=== PATIENT | male | born 1965 | race Caucasian/White ===

== ENCOUNTER → 2016-07-28 | Day surgery (SDC) | payer OTHER | LOC: RAD 13:09 | PROVIDERS: ATTEND Orthopaedic Surgery | PROC: BP0 Imaging, Non-Axial Upper Bones, Plain Radiography (ICD-10-PCS; principal; 2016-07-28) | DX: M87.851 Other osteonecrosis, right femur (principal); M25.551 Pain in right hip | CPT/HCPCS: 73722; 73525; 77002; A9576 ==

== ENCOUNTER 2016-10-01 08:28 | Inpatient (IN) | payer OTHER ==
--- NOTE | 2016-09-18 11:43 | RADIOLOGY REPORT (SQ) ---
EXAM DESCRIPTION: CHEST PA/LATERAL COMPLETED DATE/TIME: 09/18/2016 11:28 am REASON FOR STUDY: PRE OP COMPARISON: CT chest 12/31/2011 Chest films 01/26/2013, 05/30/2014 EXAM PARAMETERS: NUMBER OF VIEWS: two views TECHNIQUE: Digital Frontal and Lateral radiographic views of the chest acquired. RADIATION DOSE: NA LIMITATIONS: none FINDINGS: LUNGS AND PLEURA: No opacities, masses or pneumothorax. No pleural effusion. MEDIASTINUM AND HILAR STRUCTURES: No masses or contour abnormalities. HEART AND VASCULAR STRUCTURES: Heart normal size. No evidence for failure. BONES: No acute findings. HARDWARE: Clips right upper quadrant post cholecystectomy OTHER: No other significant finding. IMPRESSION: NO SIGNIFICANT RADIOGRAPHIC FINDING IN THE CHEST. TECHNICAL DOCUMENTATION: JOB ID: [id number] [employer]- All Rights Reserved
[2016-09-18 11:49] LABS: APPEARANCE,URINE CLEAR; BILIRUBIN,URINE NEGATIVE (NEGATIVE); GLUCOSE, URINE NEGATIVE (NEGATIVE); KETONES,URINE NEGATIVE (NEGATIVE); LEUKOCYTE ESTERASE,URINE NEGATIVE (NEGATIVE); NITRITE,URINE NEGATIVE (NEGATIVE); PROTEIN,URINE NEGATIVE (NEGATIVE); URINE SPECIFIC GRAVITY 1.017; UROBILINOGEN,URINE NEGATIVE mg/dL (<2.0)
[2016-09-18 12:03] LABS: ABSOLUTE EOSINOPHILS # (AUTO) 0.1 10^3/uL (0.0-0.6); ABSOLUTE LYMPHOCYTES (AUTO) 1.7 10^3/uL (0.5-4.7); ABSOLUTE MONOCYTES (AUTO) 0.5 10^3/uL (0.1-1.4); ABSOLUTE NEUT (AUTO) 2.4 10^3/uL (1.7-8.2); BASOPHILS % (AUTO) 0.6 % (0-2); EOSINOPHILS % (AUTO) 2.9 % (0-6); HEMATOCRIT 43.5 % (37.9-51.0); HEMOGLOBIN 14.8 g/dL (13.5-17.0); HGB HCT DIFFERENCE 0.9; LYMPHOCYTES % (AUTO) 35.6 % (13-45); MEAN CORPUSCULAR HEMOGLOBIN 31.2 pg (27.0-33.4); MEAN CORPUSCULAR HGB CONC 34.2 g/dL (32.0-36.0); MEAN CORPUSCULAR VOLUME 91 fl (80-97); MONOCYTES % (AUTO) 11.2 % (3-13); RED BLOOD COUNT 4.76 10^6/uL (4.35-5.55); RED CELL DISTRIBUTION WIDTH 14.4 % (11.5-14.0); SEGMENTED NEUTROPHILS % (AUTO) 49.7 % (42-78); WHITE BLOOD COUNT 4.9 10^3/uL (4.0-10.5)
[2016-09-18 12:12] LABS: ANION GAP 14 (5-19); BLOOD UREA NITROGEN 19 mg/dL (7-20); CALCIUM 9.2 mg/dL (8.4-10.2); CARBON DIOXIDE 22 mmol/L (22-30); CHLORIDE 108 mmol/L (98-107); CREATININE RESULT 1.03 mg/dL (0.52-1.25); GLUCOSE 82 mg/dL (75-110); POTASSIUM 4.4 mmol/L (3.6-5.0); SODIUM 144.2 mmol/L (137-145)
--- NOTE | 2016-09-19 04:45 | EKG REPORT ---
SEVERITY:- NORMAL ECG - SINUS RHYTHM : Confirmed by: Ijeoma Witt MD 19-Sep-2016 04:01:03
[~2016-10-01 08:28] MED LIST: CEFAZOLIN 2 GM/D5W RTU 2 GM/50 ML RTUPB IV PRN; LACTATED RINGERS 1000 ML IV PRN
[2016-10-01] MEDS ORDERED: BUPIVACAINE HCL 0.25 % INJ/PF (2.5 MG/1 ML) 30 ML VIAL ONE (10:23)
[2016-10-01] MEDS ORDERED: LIDOCAINE 1% INJ-PF (10 MG/ML) 30 ML SDV ONE (10:23)
[2016-10-01] MEDS ORDERED: FENTANYL CITRATE INJ/PF 250 MCG/5 ML AMPULE ONE ×2 (10:30→10:37)
[2016-10-01] MEDS ORDERED: MIDAZOLAM 2 MG/2 ML INJ ONE (10:30)
[2016-10-01] MEDS ORDERED: KETAMINE HCL INJ 500 MG/10 ML VIAL ONE ×2 (10:30→10:37)
[2016-10-01] MEDS ORDERED: PROPOFOL INJ 200 MG/20 ML VIAL IV ONE (10:30)
[2016-10-01] MEDS ORDERED: MEPERIDINE HCL/PF INJ 25 MG/1 ML DISP.SYRIN IV PRN (11:16)
[2016-10-01] MEDS ORDERED: OXYCODONE-ACETAMINOPHEN 5-325 MG TABLET PO PRN ×3 (11:16→12:00)
[2016-10-01] MEDS ORDERED: MORPHINE SULFATE 10 MG/ML INJ IV PRN (11:16)
[2016-10-01] MEDS ORDERED: PROMETHAZINE HCL INJ 25 MG/1 ML VIAL IV PRN ×2 (11:16)
[2016-10-01] MEDS ORDERED: FENTANYL CITRATE INJ/PF 100 MCG/2 ML AMPUL IV PRN ×3 (11:16)
[2016-10-01] MEDS ORDERED: DIPHENHYDRAMINE HCL 50 MG/ML VIAL IV PRN (11:16)
--- NOTE | 2016-10-01 11:30 | Operative Report ---
Operative Report DATE OF SURGERY: 10/01/16 PREOPERATIVE DIAGNOSIS: Bilateral femoral head avascular necrosis OPERATION: biLateral femoral head core decompression SURGEON: HUSSEIN LLOYD ANESTHESIA: LMAC ESTIMATED BLOOD LOSS: Minimal PROCEDURE: Patient supine on the fracture table the right hindquarter was prepped and draped in a sterile fashion. A pin is placed topically over the hindquarter so that the trajectory the pain can be assessed fluoroscopically. The insert site is then identified and is infiltrated with combination of Xylocaine, Marcaine, and epinephrine. Subsequent fluoroscopic guidance a pin is placed from the lateral cortex up into the proximal aspect of the head central from an anterior posterior standpoint. The pain is confirmed using fluoroscopy in 2 dimensions. Subsequently the drill from the 6.5 mm cannulated screws was advanced over the pending used to perform a core decompression. The drill and the pinna removed. The wound is irrigated. Is reapproximated with interrupted luz. An identical procedure was then performed on the left side.
[2016-10-01] MEDS: FENTANYL CITRATE INJ/PF 100 MCG/2 ML AMPUL ONE ×2 (11:45→11:55)
[2016-10-01] MEDS ORDERED: ACETAMINOPHEN 100 ML IV ONE (11:55)
[2016-10-01] MEDS: MORPHINE SULFATE 10 MG/ML INJ ONE ×2 (12:00→12:15)
[2016-10-01] MEDS ORDERED: ONDANSETRON HCL INJ/PF 4 MG/2 ML SDV IV PRN (12:00)
[2016-10-01] MEDS ORDERED: OXYCODONE HCL IR 5 MG TABLET PO PRN ×2 (12:00→12:05)
[2016-10-01] MEDS ORDERED: KETOROLAC TROMETHAMINE INJ/PF 30 MG/1 ML SDV ONE (12:49)
--- NOTE | 2016-10-01 13:11 | RADIOLOGY REPORT (SQ) ---
EXAM DESCRIPTION: HIP IN OPERATING RM; NO CHG FLUORO COMPLETED DATE/TIME: 10/01/2016 12:37 pm REASON FOR STUDY: BILAT HIP DECOMP IN OR M87.059 IDIOPATHIC ASEPTIC NECROSIS OF UNSPECIFIED FEMUR COMPARISON: MRI right hip 07/28/2016 FLUOROSCOPY TIME: 0.6 minutes 4 fluoroscopic digital radiographic images saved to PACS. TECHNIQUE: Intra-operative images acquired during surgical procedure to evaluate progress. NUMBER OF IMAGES: 4 digital fluoroscopic radiographic images LIMITATIONS: None. FINDINGS: Intra procedural imaging and fluoroscopy. Please see Dr. Lozano's operative report IMPRESSION: Intra procedural imaging and fluoro COMMENT: Quality ID [id number]: Final reports for procedures using fluoroscopy that document radiation exp osure indices, or exposure time and number of fluorographic images (if radiation exposure indices are not available) Please consult full operative report of the attending physician for description of the procedure. TECHNICAL DOCUMENTATION: JOB ID: [id number] [employer]- All Rights Reserved
[2016-10-01 14:09] VITALS: BP 118/82
== END 2016-10-01 14:15 | disposition home or self-care (01) | DRG 499 ==
LOC: INOR 08:28 → OROUT 08:28 → UNDOADMIN 08:28 → EDSTATUS 10:30 → OROUT 14:15 → UNDODISIN 14:15 → EDSTATUS 10-03 10:30
PROVIDERS: ADMIT Orthopaedic Surgery; ATTEND Orthopaedic Surgery
PROC: 0QB63ZZ Excision of Right Upper Femur, Percutaneous Approach (ICD-10-PCS; 2016-10-01)
PROC: 0QB Lower Bones, Excision (ICD-10-PCS; principal; 2016-10-01 10:30)
DX: M87.852 Other osteonecrosis, left femur (principal); M87.851 Other osteonecrosis, right femur; E78.5 Hyperlipidemia, unspecified; M10.9 Gout, unspecified; K21.9 Gastro-esophageal reflux disease without esophagitis; E66.9 Obesity, unspecified; J45.909 Unspecified asthma, uncomplicated; M51.36 Other intervertebral disc degeneration, lumbar region; Z90.49 Acquired absence of other specified parts of digestive tract; Z79.51 Long term (current) use of inhaled steroids; Z79.899 Other long term (current) drug therapy; Z79.1 Long term (current) use of non-steroidal anti-inflammatories (NSAID); Z68.36 Body mass index [BMI] 36.0-36.9, adult; Z91.018 Allergy to other foods; Z82.61 Family history of arthritis; Z80.1 Family history of malignant neoplasm of trachea, bronchus and lung; Z82.49 Family history of ischemic heart disease and other diseases of the circulatory system; Z88.8 Allergy status to other drugs, medicaments and biological substances
CPT/HCPCS: 01210; 36415; 71020; 80048; 81001; 85025; 93005; 93010; J0131; J0690; J1885; J2250; J2270; J2704; J3010; J3490

== ENCOUNTER 2017-03-18 07:25 | Day surgery (SDC) | payer OTHER ==
[~2017-03-18 07:25] MED LIST changes: -CEFAZOLIN 2 GM/D5W RTU 2 GM/50 ML RTUPB IV PRN; +DIPHENHYDRAMINE HCL 50 MG/ML VIAL ONE; +EPINEPHRINE INJ 1 MG/10 ML DISP.SYRIN ONE; +FENTANYL CITRATE INJ/PF 100 MCG/2 ML AMPUL ONE; +FLUMAZENIL INJ 0.5 MG/5 ML VIAL ONE; +GLUCAGON,HUMAN RECOMB 1 MG INJ ONE; -LACTATED RINGERS 1000 ML IV PRN; +MIDAZOLAM 2 MG/2 ML INJ ONE; +NALOXONE HCL INJ/PF 0.4 MG/1 ML SDV ONE; +ONDANSETRON HCL INJ/PF 4 MG/2 ML SDV ONE
--- NOTE | 2017-03-18 08:17 | Operative Report ---
Operative Report DATE OF SURGERY: 03/18/17 Operative Report: The risks benefits and alternatives of the procedure explained to the patient in detail and informed consent is obtained.A GIF Olympus video scope was inserted into the patient's mouth and hypopharynx, the esophagus is identified intubated and insufflated, the scope was then advanced through the esophagus stomach and duodenum, retroflexion maneuver is done the esophagus stomach and first and second portions of the duodenum examined PREOPERATIVE DIAGNOSIS: Gastroesophageal reflux disease POSTOPERATIVE DIAGNOSIS: Mild esophagitis, gastritis status post biopsy rule out Helicobacter pylori OPERATION: EGD with biopsy SURGEON: SHERRIE SHELL ANESTHESIA: Other - Patient chose to do the procedure unsedated. TISSUE REMOVED OR ALTERED: Gastric mucosal specimen obtained to rule out Helicobacter pylori COMPLICATIONS: None. ESTIMATED BLOOD LOSS: None. INTRAOPERATIVE FINDINGS: As noted above. PROCEDURE: Patient tolerated the procedure well. No immediate postprocedure complications are noted. Patient discharged in good condition. Discharge date 03/18/2017. Discharge diet: Regular. Discharge activity: Regular. 2-3 week follow-up to discuss findings. Patient is instructed to call the office or proceed to the emergency room should there be any further problems or questions. We will await pathology.
[2017-03-18 08:38] VITALS: BP 128/89
== END 2017-03-18 08:50 | disposition home or self-care (01) ==
LOC: END 07:25
PROVIDERS: ATTEND Internal Medicine Gastroenterology
PROC: 0DB68ZX Excision of Stomach, Via Natural or Artificial Opening Endoscopic, Diagnostic (ICD-10-PCS; principal; 2017-03-18 08:00)
DX: K21.0 Gastro-esophageal reflux disease with esophagitis (principal); E78.2 Mixed hyperlipidemia; I10 Essential (primary) hypertension; J45.909 Unspecified asthma, uncomplicated; M10.9 Gout, unspecified; K29.70 Gastritis, unspecified, without bleeding; M43.17 Spondylolisthesis, lumbosacral region; Z79.51 Long term (current) use of inhaled steroids; Z79.899 Other long term (current) drug therapy
CPT/HCPCS: 43239; 88305; 88342; J0171; J1200; J1610; J2250; J2310; J2405; J3010; J3490

== ENCOUNTER → 2017-06-16 | Outpatient (CLI) | payer OTHER ==
[2017-06-16 14:36] LABS: ABSOLUTE LYMPHOCYTES (AUTO) 2.1 10^3/uL (0.5-4.7); ABSOLUTE MONOCYTES (AUTO) 0.5 10^3/uL (0.1-1.4); ABSOLUTE NEUT (AUTO) 3.7 10^3/uL (1.7-8.2); BASOPHILS % (AUTO) 0.5 % (0-2); EOSINOPHILS % (AUTO) 0.6 % (0-6); HEMATOCRIT 43.7 % (37.9-51.0); HEMOGLOBIN 15.3 g/dL (13.5-17.0); LYMPHOCYTES % (AUTO) 32.3 % (13-45); MEAN CORPUSCULAR HEMOGLOBIN 31.6 pg (27.0-33.4); MEAN CORPUSCULAR HGB CONC 34.9 g/dL (32.0-36.0); MEAN CORPUSCULAR VOLUME 91 fl (80-97); MONOCYTES % (AUTO) 8.5 % (3-13); PLATELET COUNT 171 10^3/uL (150-450); RED BLOOD COUNT 4.83 10^6/uL (4.35-5.55); RED CELL DISTRIBUTION WIDTH 13.9 % (11.5-14.0); SEGMENTED NEUTROPHILS % (AUTO) 58.1 % (42-78); TOTAL CELLS COUNTED % (AUTO) 100 %; WHITE BLOOD COUNT 6.4 10^3/uL (4.0-10.5)
[2017-06-16 14:43] LABS: APPEARANCE,URINE CLEAR; BILIRUBIN,URINE NEGATIVE (NEGATIVE); COLOR,URINE YELLOW; GLUCOSE, URINE NEGATIVE (NEGATIVE); KETONES,URINE NEGATIVE (NEGATIVE); LEUKOCYTE ESTERASE,URINE NEGATIVE (NEGATIVE); NITRITE,URINE NEGATIVE (NEGATIVE); PROTEIN,URINE NEGATIVE (NEGATIVE); URINE SPECIFIC GRAVITY 1.012; UROBILINOGEN,URINE NEGATIVE mg/dL (<2.0)
--- NOTE | 2017-06-16 14:51 | RADIOLOGY REPORT (SQ) ---
EXAM DESCRIPTION: CHEST PA/LATERAL COMPLETED DATE/TIME: 06/16/2017 1:51 pm REASON FOR STUDY: PRE OP COMPARISON: August 2016 EXAM PARAMETERS: NUMBER OF VIEWS: two views TECHNIQUE: Digital Frontal and Lateral radiographic views of the chest acquired. RADIATION DOSE: NA LIMITATIONS: none FINDINGS: LUNGS AND PLEURA: No opacities, masses or pneumothorax. No pleural effusion. Linear scarr ing or subsegmental atelectasis is identified in the left costophrenic angle. MEDIASTINUM AND HILAR STRUCTURES: No masses or contour abnormalities. HEART AND VASCULAR STRUCTURES: Heart normal size. No evidence for failure. BONES: No acute findings. HARDWARE: None in the chest. OTHER: No other significant finding. IMPRESSION: NO SIGNIFICANT RADIOGRAPHIC FINDING IN THE CHEST. TECHNICAL DOCUMENTATION: JOB ID: [id number] [employer]- All Rights Reserved Reading location - IP/workstation name: [email or web address]
[2017-06-16 14:54] LABS: ANION GAP 10 (5-19); BLOOD UREA NITROGEN 22 mg/dL (7-20); CALCIUM 9.7 mg/dL (8.4-10.2); CARBON DIOXIDE 27 mmol/L (22-30); CHLORIDE 105 mmol/L (98-107); GLUCOSE 83 mg/dL (75-110); POTASSIUM 4.3 mmol/L (3.6-5.0); SODIUM 141.8 mmol/L (137-145)
--- NOTE | 2017-06-16 15:54 | EKG REPORT ---
SEVERITY:- OTHERWISE NORMAL ECG - SINUS TACHYCARDIA : Confirmed by: Christine Smith 16-Jun-2017 15:52:40
== END ==
LOC: OD 13:17
PROVIDERS: ATTEND Orthopaedic Surgery
DX: Z01.818 Encounter for other preprocedural examination (principal); J45.909 Unspecified asthma, uncomplicated
CPT/HCPCS: 36415; 71046; 80048; 81001; 85025; 93005; 93010

== ENCOUNTER 2017-07-13 05:27 | Inpatient (IN) | payer OTHER ==
[~2017-07-13 05:27] MED LIST changes: +BUPIVACAINE INJ/PF LIPOSOME/PF 266 MG/20 ML SDV IJ PRN; +CEFAZOLIN INJ 1 GM VIAL IV PRN; -DIPHENHYDRAMINE HCL 50 MG/ML VIAL ONE; -EPINEPHRINE INJ 1 MG/10 ML DISP.SYRIN ONE; -FENTANYL CITRATE INJ/PF 100 MCG/2 ML AMPUL ONE; -FLUMAZENIL INJ 0.5 MG/5 ML VIAL ONE; -GLUCAGON,HUMAN RECOMB 1 MG INJ ONE; +IBUPROFEN 800 MG in DEXTROSE 5%-WATER 250 ML IV PRN; +LACTATED RINGERS 1000 ML IV PRN; +LANSOPRAZOLE 15 MG TAB.RAP.DR PO PRN; +LIDOCAINE 0.5% INJ-PF (5 MG/ML) 50 ML SDV SUBCUT PRN; -MIDAZOLAM 2 MG/2 ML INJ ONE; -NALOXONE HCL INJ/PF 0.4 MG/1 ML SDV ONE; -ONDANSETRON HCL INJ/PF 4 MG/2 ML SDV ONE; +OXYCODONE HCL SR 10 MG TABLET PO PRN
[2017-07-13] MEDS: VANCOMYCIN HCL 1,000 MG in NORMAL SALINE 250 ML IV PRN ×2 (06:30→06:50)
[2017-07-13] MEDS ORDERED: THROMBIN (BOVINE) 5000 UNIT EPITAXIS KIT ONE (06:38)
[2017-07-13] MEDS ORDERED: THROMBIN (BOVINE) TOPICAL 20000 UNIT VIAL ONE (06:38)
[2017-07-13] MEDS ORDERED: BUPIVACAINE INJ/PF LIPOSOME/PF 266 MG/20 ML SDV ONE (06:38)
[2017-07-13] MEDS ORDERED: FENTANYL CITRATE INJ/PF 100 MCG/2 ML AMPUL ONE (07:24)
[2017-07-13] MEDS ORDERED: MIDAZOLAM 2 MG/2 ML INJ ONE (07:24)
[2017-07-13] MEDS ORDERED: LIDOCAINE 2% INJ-PF (20 MG/ML) 10 ML AMPUL ONE (07:24)
[2017-07-13] MEDS ORDERED: ACETAMINOPHEN 100 ML IV ONE (07:25)
[2017-07-13] MEDS ORDERED: PROPOFOL INJ 200 MG/20 ML VIAL IV ONE (07:25)
[2017-07-13] MEDS ORDERED: TETRACAINE HCL/PF 20MG/2ML AMPULE (SPINAL) ONE ×2 (07:25→07:33)
[2017-07-13] MEDS ORDERED: TRANEXAMIC ACID INJ/PF 1,000 MG/10 ML SDV IV ONE ×2 (07:28→09:32)
[2017-07-13] MEDS ORDERED: ONDANSETRON HCL INJ/PF 4 MG/2 ML SDV ONE (07:28)
[2017-07-13] MEDS ORDERED: FENTANYL CITRATE INJ/PF 100 MCG/2 ML AMPUL IV PRN ×3 (07:55)
[2017-07-13] MEDS ORDERED: PROMETHAZINE HCL INJ 25 MG/1 ML VIAL IV PRN ×2 (07:55)
[2017-07-13] MEDS ORDERED: ONDANSETRON HCL INJ/PF 4 MG/2 ML SDV IV PRN ×3 (07:55→10:30)
[2017-07-13] MEDS ORDERED: MEPERIDINE HCL/PF INJ 25 MG/1 ML DISP.SYRIN IV PRN (07:55)
[2017-07-13] MEDS ORDERED: OXYCODONE-ACETAMINOPHEN 5-325 MG TABLET PO PRN ×2 (07:55)
[2017-07-13] MEDS ORDERED: DIPHENHYDRAMINE HCL 50 MG/ML VIAL IV PRN ×2 (07:55→08:44)
--- NOTE | 2017-07-13 08:42 | Operative Report ---
Operative Report DATE OF SURGERY: 07/13/17 PREOPERATIVE DIAGNOSIS: Right hip avascular necrosis OPERATION: Right hip arthroplasty SURGEON: HUSSEIN LLOYD ANESTHESIA: Spinal TISSUE REMOVED OR ALTERED: Femoral head to pathology ESTIMATED BLOOD LOSS: 100 PROCEDURE: Implants used: Femur: Cecil Accolade 2 stem, size 6 Acetabular shell: 56 mm hemispherical shell Liner: 36 mm flat cross-link polyethylene liner Head: 36 mm chrome cobalt head standard neck The patient is placed in a left lateral decubitus position on the operating table. The right lower extremity and hindquarter is prepped and draped in a sterile fashion. A curvilinear incision was made over the greater trochanter a posterior approach the hip was taken. The femoral head is dislocated and the femoral neck transected using an oscillating saw. Attention was next turned to the acetabulum. Soft tissues cleared off the acetabulum using electrocautery. The acetabulum was then prepared using a series of hemispherical reamers until a 55 millimeters reamer is seated. Subsequently a 56 millimeters [place] titanium hemispherical shell is impacted into position and secured with one screw. A standard flat 36 millimeters cross- link liner is impacted into the shell. Attention was next turned to the femur. Access is gained to the femoral canal using a box osteotome to the piriformis fossa. The femur is then prepared using a series of broaches until a number 6 broach is seated. A trial reduction was now performed using a 36 millimeters head with standard neck. Preoperative leg length was recreated and is excellent anterior posterior stability. A decision was made to proceed with the above construct. All trial implants were removed. The wound is irrigated with pulsed lavage. A number 6 stem is impacted into the femoral canal. A trial reduction was again performed with a 36 mm head and a standard neck. Findings as previously. The hip was dislocated one last time and the final chrome-cobalt head is impacted onto the trunnion. The hip was reduced. Wound is copiously irrigated with pulsed lavage. Sent closed in layers using interrupted Vicryl followed by luz. A sterile dressing is applied and the patient's returned to recovery room in satisfactory patient.
[2017-07-13] MEDS ORDERED: ACETAMINOPHEN 325 MG TABLET PO PRN (08:44)
[2017-07-13] MEDS ORDERED: MORPHINE SULFATE 10 MG/ML INJ IV PRN ×3 (08:44→18:00)
[2017-07-13] MEDS ORDERED: RINGERS SOLUTION,LACTATED 1,000 ML IV PRN (08:44)
[2017-07-13] MEDS ORDERED: MAG HYDROX/AL HYDROX/SIMETH SUSP 30 ML UDCUP PO PRN (08:44)
[2017-07-13] MEDS ORDERED: ZOLPIDEM TARTRATE 5 MG TABLET PO PRN (08:44)
[2017-07-13] MEDS ORDERED: ONDANSETRON 4 MG TAB.RAPDIS PO PRN ×2 (08:44→10:30)
[2017-07-13] MEDS ORDERED: MORPHINE SULFATE 10 MG/ML INJ IM PRN (08:44)
[2017-07-13] MEDS: FENTANYL CITRATE INJ/PF 100 MCG/2 ML AMPUL ONE ×2 (09:07→09:15)
--- NOTE | 2017-07-13 09:32 | RADIOLOGY REPORT (SQ) ---
EXAM DESCRIPTION: PELVIS AP COMPLETED DATE/TIME: 07/13/2017 9:13 am REASON FOR STUDY: Post Op Long Cassette in PACU M76.891 OTH ENTHESOPATHIES OF RIGHT LOWER LIMB, E XCLUDING FO M25.851 OTHER SPECIFIED JOINT DISORDERS, RIGHT HIP M70.61 TROCHANTERIC BURSITIS, RIGHT HIP COMPARISON: Right hip MRI arthrogram 07/28/2016 NUMBER OF VIEWS: AP pelvis, AP right hip to include the entire femoral prosthesis TECHNIQUE: Digital radiographic images of the right hip post-procedure. LIMITATIONS: None. FINDINGS: Post right hip replacement with acetabular component anchored with a single screw, non bethanie ented femoral component. Good alignment. Overlying skin luz. Remainder of the bony pelvis is otherwise unremarkable aside from fusion hardware at L5-S1. IMPRESSION: SATISFACTORY POSTOPERATIVE RIGHT HIP. TECHNICAL DOCUMENTATION: JOB ID: [id number] [employer]- All Rights Reserved Reading location - IP/workstation name: [email or web address]
[2017-07-13] MEDS ORDERED: PHENTERMINE HCL 37.5 MG PO SCH (10:00)
[2017-07-13] MEDS ORDERED: (PENDING PHARMACY ID) (Pantoprazole Sodium [Protonix] 20 MG) PO SCH (10:00)
[2017-07-13] MEDS ORDERED: (PENDING PHARMACY ID) (Olopatadine Hcl [Pataday] 2.5 ML) OU SCH (10:00)
[2017-07-13] MEDS ORDERED: OXYCODONE HCL SR 10 MG TABLET PO SCH (10:00)
[2017-07-13] MEDS ORDERED: (PENDING PHARMACY ID) (Pregabalin [Lyrica] 200 MG) PO SCH (10:00)
[2017-07-13] MEDS: MORPHINE SULFATE 10 MG/ML INJ IV PRN ×5 (10:52→16:22)
[2017-07-13] MEDS: PRENATAL VITAMIN W DHA CAPSULE PO SCH (11:06)
[2017-07-13] MEDS: GEMFIBROZIL 600 MG TABLET PO SCH ×2 (11:06→17:59)
[2017-07-13] MEDS: SENNOSIDES/DOCUSATE 8.6-50 MG 1 EACH TABLET PO SCH ×2 (11:06→18:00)
[2017-07-13] MEDS ORDERED: PREGABALIN 100 MG CAPSULE PO ONE (11:30)
[2017-07-13] MEDS: FLUTICASONE PROPIONATE HFA 110 MCG/PUFF 12 GM MDI IH SCH ×2 (13:17→18:01)
[2017-07-13] MEDS ORDERED: PHENYLEPHRINE HCL INJ/PF 10 MG/1 ML SDV ONE (13:45)
[2017-07-13] MEDS ORDERED: PREGABALIN 100 MG CAPSULE PO SCH (14:00)
[2017-07-13] MEDS ORDERED: METHOCARBAMOL 500 MG TABLET PO PRN ×2 (15:09→18:00)
[2017-07-13] MEDS ORDERED: BACLOFEN 20 MG TABLET PO PRN (15:09)
[2017-07-13] MEDS: OXYCODONE HCL SR 10 MG TABLET PO SCH (17:26)
[2017-07-13] MEDS: IBUPROFEN 800 MG in NORMAL SALINE 250 ML IV SCH (17:26)
[2017-07-13] MEDS ORDERED: (PENDING PHARMACY ID) (Cetirizine Hcl [Zyrtec] 10 MG) PO SCH (18:00)
[2017-07-13] MEDS: CETIRIZINE 10 MG TABLET PO SCH (18:00)
[2017-07-13] MEDS: OXYCODONE HCL IR 5 MG TABLET PO PRN (19:45)
[2017-07-13] MEDS ORDERED: VANCOMYCIN HCL 1,000 MG in DEXTROSE 5%-WATER 250 ML IV ONE (20:44)
[2017-07-13] MEDS: PREGABALIN 100 MG CAPSULE PO SCH (21:23)
[2017-07-13] MEDS: SUCRALFATE SUSP 1 GM/10 ML UDCUP PO SCH (21:24)
[2017-07-13] MEDS: MONTELUKAST SODIUM 10 MG TABLET PO SCH (21:24)
[2017-07-13] MEDS: ALLOPURINOL 300 MG TABLET PO SCH (21:24)
[2017-07-14] MEDS: IBUPROFEN 800 MG in NORMAL SALINE 250 ML IV SCH ×3 (01:48→19:08)
[2017-07-14] MEDS ORDERED: METHOCARBAMOL 500 MG TABLET PO PRN (03:16)
[2017-07-14] MEDS: PREGABALIN 100 MG CAPSULE PO SCH ×3 (05:43→23:24)
[2017-07-14] MEDS: LANSOPRAZOLE 30 MG TAB.RAP.DR PO SCH (05:44)
[2017-07-14] MEDS: OXYCODONE HCL SR 10 MG TABLET PO SCH ×2 (05:44→19:07)
[2017-07-14 06:30] LABS: HEMATOCRIT 36.3 % (37.9-51.0); HEMOGLOBIN 12.6 g/dL (13.5-17.0); MEAN CORPUSCULAR HEMOGLOBIN 31.9 pg (27.0-33.4); MEAN CORPUSCULAR HGB CONC 34.9 g/dL (32.0-36.0); MEAN CORPUSCULAR VOLUME 91 fl (80-97); PLATELET COUNT 147 10^3/uL (150-450); RED BLOOD COUNT 3.97 10^6/uL (4.35-5.55); RED CELL DISTRIBUTION WIDTH 14.1 % (11.5-14.0); WHITE BLOOD COUNT 7.5 10^3/uL (4.0-10.5)
--- NOTE | 2017-07-14 06:38 | PDOC PROGRESS REPORT ---
Subjective Progress Note for:: 07/14/17 Reason For Visit: M76.891 OTH ENTHESOPATHIES OF RIG, M25.851. M70.61 51-year-old white male postop day 1 right total hip arthroplasty for avascular necrosis. Patient complained of pain overnight. Physical Exam Vital Signs: Temp Pulse Resp BP Pulse Ox 37.1 C 84 16 121/72 96 07/14/17 04:23 07/14/17 04:23 07/14/17 04:23 07/14/17 04:23 07/14/17 04:23 Intake & Output 07/12/17 07/13/17 07/14/17 06:59 06:59 06:59 Intake Total 0 5700 Output Total 5505 Balance 0 195 Weight 113.9 kg General appearance: PRESENT: mild distress Head exam: PRESENT: normocephalic Respiratory exam: PRESENT: unlabored Cardiovascular exam: PRESENT: RRR Pulses: PRESENT: +1 pedal pulses bilateral Vascular exam: PRESENT: normal capillary refill GI/Abdominal exam: PRESENT: soft Rectal exam: PRESENT: deferred Extremities exam: PRESENT: other - Right hip dressing clean dry and intact. Leg lengths are equal. Distal neurovascular examination is intact. Neurological exam: PRESENT: alert, awake, oriented to person, oriented to place , oriented to time, oriented to situation. ABSENT: motor sensory deficit Psychiatric exam: PRESENT: appropriate affect, normal mood. ABSENT: homicidal ideation, suicidal ideation Skin exam: PRESENT: dry, intact, warm. ABSENT: cyanosis, rash Results Laboratory Results: 07/14/17 05:48 07/13/17 07/14/17 05:56 05:48 WBC 7.5 RBC 3.97 L Hgb 12.6 L Hct 36.3 L MCV 91 MCH 31.9 MCHC 34.9 RDW 14.1 H Plt Count 147 L Blood Type A POSITIVE Antibody Screen NEGATIVE Impressions: Pelvis X-Ray 07/13/17 08:46 IMPRESSION: SATISFACTORY POSTOPERATIVE RIGHT HIP. Status: Imported from PACS Assessment & Plan - Diagnosis (1) Avascular necrosis due to adverse effect of steroid therapy Is this a current diagnosis for this admission?: Yes Plan: 51-year-old white male postop day 1 right hip arthroplasty for avascular necrosis. Patient complained of pain overnight that he attributes to a neurogenic pain stimulated by the spinal anesthetic. He was able ambulate 7 feet. Plan for ongoing physical therapy today and potential discharge home tomorrow with home health services. - Time Time Spent with patient: 15-24 minutes Anticipated discharge: Home with Homehealth Within: within 24 hours
[2017-07-14 06:52] LABS: ANION GAP 9 (5-19); BLOOD UREA NITROGEN 15 mg/dL (7-20); CARBON DIOXIDE 31 mmol/L (22-30); CHLORIDE 101 mmol/L (98-107); GLUCOSE 95 mg/dL (75-110); POTASSIUM 4.2 mmol/L (3.6-5.0); SODIUM 140.6 mmol/L (137-145)
[2017-07-14] MEDS: OXYCODONE HCL IR 5 MG TABLET PO PRN (07:37)
[2017-07-14] MEDS: ASPIRIN 81 MG TABLET, CHEWABLE PO SCH (09:57)
[2017-07-14] MEDS: SENNOSIDES/DOCUSATE 8.6-50 MG 1 EACH TABLET PO SCH ×2 (09:58→19:06)
[2017-07-14] MEDS: PRENATAL VITAMIN W DHA CAPSULE PO SCH (09:58)
[2017-07-14] MEDS: GEMFIBROZIL 600 MG TABLET PO SCH ×2 (09:58→19:07)
[2017-07-14] MEDS: FLUTICASONE PROPIONATE HFA 110 MCG/PUFF 12 GM MDI IH SCH ×2 (10:02→19:08)
[2017-07-14] MEDS: CETIRIZINE 10 MG TABLET PO SCH (19:06)
[2017-07-14] MEDS: MONTELUKAST SODIUM 10 MG TABLET PO SCH (23:25)
[2017-07-14] MEDS: ALLOPURINOL 300 MG TABLET PO SCH (23:25)
[2017-07-15] MEDS: IBUPROFEN 800 MG in NORMAL SALINE 250 ML IV SCH ×2 (01:22→11:13)
[2017-07-15] MEDS: SUCRALFATE SUSP 1 GM/10 ML UDCUP PO SCH (01:22)
[2017-07-15] MEDS: LANSOPRAZOLE 30 MG TAB.RAP.DR PO SCH (05:55)
[2017-07-15] MEDS: PREGABALIN 100 MG CAPSULE PO SCH (05:55)
[2017-07-15] MEDS: OXYCODONE HCL SR 10 MG TABLET PO SCH (05:55)
[2017-07-15 06:04] LABS: HEMATOCRIT 35.2 % (37.9-51.0); HEMOGLOBIN 12.2 g/dL (13.5-17.0); MEAN CORPUSCULAR HEMOGLOBIN 31.8 pg (27.0-33.4); MEAN CORPUSCULAR HGB CONC 34.8 g/dL (32.0-36.0); MEAN CORPUSCULAR VOLUME 91 fl (80-97); PLATELET COUNT 153 10^3/uL (150-450); RED BLOOD COUNT 3.85 10^6/uL (4.35-5.55); RED CELL DISTRIBUTION WIDTH 14.8 % (11.5-14.0)
--- NOTE | 2017-07-15 07:17 | PDOC DISCHARGE SUMMARY ---
General - Admit/Disc Date/PCP Admission Date/Primary Care Provider: 07/13/17 05:27 PAZ LUCAS PA-C Discharge Date: 07/15/17 - Discharge Diagnosis (1) Avascular necrosis due to adverse effect of steroid therapy Is this a current diagnosis for this admission?: Yes - Additional Information Resuscitation Status: Full Code Discharge Diet: As Tolerated, Regular Discharge Activity: Balance Activity w/Rest, No Driving, No tub bath Home Medications: Albuterol Sulfate [Proair HFA] 2 puff IH Q4HP PRN #0 03/09/12 Fluticasone Propionate [Flovent Hfa 110 Mcg Inhalation Aerosol 12 gm] 2 puff IH BID 12/01/12 Gemfibrozil [Lopid 600 mg Tablet] 600 mg PO BID 12/01/12 Montelukast Sodium [Singulair 10 mg Tablet] 10 mg PO QHS 03/14/13 Baclofen [Baclofen 20 mg Tablet] 20 mg PO QHS 09/18/16 Celecoxib [Celebrex 200 mg Capsule] 200 mg PO Q12 09/18/16 Methocarbamol [Robaxin 500 mg Tablet] 1,000 mg PO Q6HP PRN 09/18/16 Tapentadol Hydrochloride [Nucynta] 50 mg PO Q8HP PRN 06/29/17 Allopurinol [Zyloprim 300 mg Tablet] 300 mg PO QHS 07/13/17 Pantoprazole Sodium [Protonix] 40 mg PO QAM 07/13/17 Pregabalin [Lyrica] 200 mg PO QAM 07/13/17 Pregabalin [Lyrica] 400 mg PO QHS 07/13/17 Sucralfate [Carafate 1 gm Tablet] 1 gm PO QHS 07/13/17 Aspirin [Aspirin 81 mg Chewable Tablet] 81 mg PO DAILY tab.chew 07/15/17 Oxycodone HCl [Oxy-Ir 5 mg Tablet] 5 mg PO Q6HP PRN tablet 07/15/17 History of Present Illness History of Present Illness: KEI REAL is a 51 year old male with progressive right hip pain and functional disability secondary to avascular necrosis. Patient underwent core decompression approximately year ago. Pain returned and patient now is is admitted for elective right hip arthroplasty. Hospital Course Hospital Course: Patient is admitted through the operating where he undergoes uncomplicated right hip arthroplasty. Is returned to floor in satisfactory condition. Long- acting spinal anesthetic precludes meaningful participation in physical therapy on postop day 0. The patient has considerable pain in the morning of postop day 1 but the makes excellent progress in the afternoon. Right hip dressing remains clean dry and intact. Patient ready for discharge home with home health nursing and home health physical therapy. Physical Exam Vital Signs: Temp Pulse Resp BP Pulse Ox 37.0 C 92 16 118/79 94 07/15/17 00:17 07/15/17 00:17 07/15/17 00:17 07/15/17 00:17 07/15/17 00:17 Intake & Output 07/14/17 07/15/17 07/16/17 06:59 06:59 06:59 Intake Total 5700 2644 Output Total 5505 4950 Balance 195 -2306 Weight 113.9 kg General appearance: PRESENT: no acute distress Head exam: PRESENT: normocephalic Respiratory exam: PRESENT: unlabored Cardiovascular exam: PRESENT: RRR Pulses: PRESENT: +1 pedal pulses bilateral Vascular exam: PRESENT: normal capillary refill GI/Abdominal exam: PRESENT: soft Rectal exam: PRESENT: deferred Extremities exam: PRESENT: other - Right hip dressing clean dry and intact. Leg lengths are equal. Distal neurovascular examination is intact. Neurological exam: PRESENT: alert, awake, oriented to person, oriented to place , oriented to time, oriented to situation. ABSENT: motor sensory deficit Psychiatric exam: PRESENT: appropriate affect, normal mood. ABSENT: homicidal ideation, suicidal ideation Skin exam: PRESENT: dry, intact, warm. ABSENT: cyanosis, rash Results Laboratory Results: 07/15/17 05:32 07/14/17 05:48 07/15/17 05:32 WBC 7.0 RBC 3.85 L Hgb 12.2 L Hct 35.2 L MCV 91 MCH 31.8 MCHC 34.8 RDW 14.8 H Plt Count 153 Impressions: Pelvis X-Ray 07/13/17 08:46 IMPRESSION: SATISFACTORY POSTOPERATIVE RIGHT HIP. Status: Imported from PACS Qualifiers - * PATEINT BEING DISCHARGED WITH ANY OF THE FOLLOWING DIAGNOSIS?: No VTE patient discharged on overlapping Therapy?: Yes Plan Discharge Plan: Patient to be discharged home with home health nursing and home health physical therapy. Patient can ambulate on a weightbearing as tolerated basis. Follow- up with Dr. Lozano [facility] for surgery in 2 weeks for staple removal.
[2017-07-15] MEDS: SENNOSIDES/DOCUSATE 8.6-50 MG 1 EACH TABLET PO SCH (11:11)
[2017-07-15] MEDS: PRENATAL VITAMIN W DHA CAPSULE PO SCH (11:12)
[2017-07-15] MEDS: ASPIRIN 81 MG TABLET, CHEWABLE PO SCH (11:12)
[2017-07-15] MEDS: GEMFIBROZIL 600 MG TABLET PO SCH (11:12)
[2017-07-15] MEDS: FLUTICASONE PROPIONATE HFA 110 MCG/PUFF 12 GM MDI IH SCH (11:18)
[2017-07-15 13:36] VITALS: BP 119/73
== END 2017-07-15 12:50 | disposition home health service (06) | DRG 470 ==
LOC: INOR 05:27 → 4S 09:55
PROVIDERS: ADMIT Orthopaedic Surgery; ATTEND Orthopaedic Surgery
PROC: 0SR902Z Replacement of Right Hip Joint with Metal on Polyethylene Synthetic Substitute, Open Approach (ICD-10-PCS; principal; 2017-07-13 07:30)
DX: M87.151 Osteonecrosis due to drugs, right femur (principal); T38.0X5A Adverse effect of glucocorticoids and synthetic analogues, initial encounter; E78.5 Hyperlipidemia, unspecified; K21.9 Gastro-esophageal reflux disease without esophagitis; J45.998 Other asthma; M10.9 Gout, unspecified
CPT/HCPCS: 01214; 36415; 72170; 80048; 85027; 86850; 86900; 86901; 88305; 88311; 94799; C1713; C9290; J0131; J0690; J1741; J2250; J2270; J2370; J2405; J2704; J3010; J3370; J3490; J7050; J7060

== ENCOUNTER 2017-07-16 19:13 | Emergency (ER) | payer OTHER ==
--- NOTE | 2017-07-16 20:09 | ER Document Report ---
ED General - General Mode of Arrival: Ambulatory Information source: Patient TRAVEL OUTSIDE OF THE [place] IN LAST 30 DAYS: No - General Chief Complaint: Post Surgical Bleeding Stated Complaint: POST OP BLEEDING Time Seen by Provider: 07/16/17 19:44 Notes: Patient is a 51 year old male history of hyperlipidemia, GERD, asthma, gout, arthritis presents to the emergency department complaining of post surgical site bleeding onset today. Patient states he had a right total hip replacement on 07/13/2017 and was discharged home yesterday. (ROWENA RUTLEDGE) - Related Data Allergies/Adverse Reactions: strawberry [[place]] Allergy (Severe, Verified 06/29/17 10:51) Hives, throat swells Steri strips Allergy (Severe, Uncoded 06/29/17 11:43) Blisters the skin ADHESIVES Adverse Reaction (Intermediate, Uncoded 06/29/17 11:43) Blisters Past Medical History - General Information source: Patient - Social History Smoking Status: Never Smoker Chew tobacco use (# tins/day): No Frequency of alcohol use: Rare Drug Abuse: None Family History: Reviewed & Not Pertinent Patient has suicidal ideation: No Patient has homicidal ideation: No Pulmonary Medical History: Reports: Hx Asthma - RESTRICTIVE AIRWAY DISEASE, Hx Bronchitis - 3-4 X/YEAR, Hx Pneumonia - X2, Hx Sleep Apnea - HX C-PAP USE, NONE CURRENTLY Renal/ Medical History: Reports: Hx Kidney Stones GI Medical History: Reports: Hx Gastroesophageal Reflux Disease, Hx Irritable Bowel Musculoskeltal Medical History: Reports Hx Arthritis Traumatic Medical History: Reports: Hx Fractures - nose Past Surgical History: Reports: Hx Appendectomy - 2011, Hx Cholecystectomy - 2011, Hx Neurologic Surgery - L5-S1 spinal fusion, Hx Orthopedic Surgery - rt hip replaced 2017 - Immunizations Hx Diphtheria, Pertussis, Tetanus Vaccination: Yes - tetanus only Hx Pneumococcal Vaccination: 03/30/13 Review of Systems - Review of Systems Constitutional: No symptoms reported EENT: No symptoms reported Cardiovascular: No symptoms reported Respiratory: No symptoms reported Gastrointestinal: No symptoms reported Genitourinary: No symptoms reported Male Genitourinary: No symptoms reported Musculoskeletal: See HPI Skin: No symptoms reported Hematologic/Lymphatic: No symptoms reported Neurological/Psychological: No symptoms reported -: Yes All other systems reviewed and negative Physical Exam - General General appearance: Alert, Anxious In distress: None - HEENT Head: Normocephalic, Atraumatic Eyes: Normal Conjunctiva: Normal Extraocular movements intact: Yes Pupils: PERRL - Respiratory Respiratory status: No respiratory distress Chest status: Nontender Breath sounds: Normal Chest palpation: Normal - Cardiovascular Rhythm: Regular Heart sounds: Normal auscultation Murmur: No Friction rub: No Gallop: None auscultated - Abdominal Inspection: Normal - Back Back: Normal - Extremities General upper extremity: Normal inspection, Normal ROM Hip: Other - Right hip contains minimal serosanguineous discharge under clear bandage - Neurological Neuro grossly intact: Yes Cognition: Normal Orientation: AAOx4 [place] Coma Scale Eye Opening: Spontaneous Amos Coma Scale Verbal: Oriented Amos Coma Scale Motor: Obeys Commands Amos Coma Scale Total: 15 Speech: Normal - Psychological Associated symptoms: Normal affect, Anxious - Skin Skin Temperature: Warm Skin Moisture: Dry Skin Color: Normal - Vital signs Vitals: Pulse Resp BP Pulse Ox 127 H 22 H 119/82 97 07/16/17 19:15 07/16/17 19:15 07/16/17 19:15 07/16/17 19:15 - Vital Signs Vital signs: Temp Pulse Resp BP Pulse Ox 98.8 F 101 H 20 122/84 97 07/16/17 20:40 07/16/17 20:40 07/16/17 20:40 07/16/17 20:40 07/16/17 20:40 Discharge - Discharge Clinical Impression: Postoperative bleeding from incision Condition: Stable Disposition: HOME, SELF-CARE Additional Instructions: There is minimal sero-sanguineous drainage from the wound. This is not an unusual finding. Dr. Lozano requests that you call him if any further concerns, otherwise follow- up with him in the office next week. RETURN TO THE EMERGENCY ROOM IF ANY NEW OR WORSENING SYMPTOMS. Referrals: HUSSEIN LOZANO MD [ACTIVE STAFF] - Follow up as needed Scribe Attestation: 07/16/17 23:22 I personally performed the services described in the documentation, reviewed and edited the documentation which was dictated to the scribe in my presence, and it accurately records my words and actions. (IRENE QUIROGA) Scribe Documentation - Scribe Written by Stalin:: Stalin Posada, 07/16/2017 20:23 acting as scribe for :: Harsha
[2017-07-16 20:41] VITALS: BP 122/84
== END 2017-07-16 20:40 | disposition home or self-care (01) ==
LOC: ER 19:13
DX: L76.22 Postprocedural hemorrhage of skin and subcutaneous tissue following other procedure (principal); Y83.4 Other reconstructive surgery as the cause of abnormal reaction of the patient, or of later complication, without mention of misadventure at the time of the procedure; Y79.3 Surgical instruments, materials and orthopedic devices (including sutures) associated with adverse incidents; K21.9 Gastro-esophageal reflux disease without esophagitis; M10.9 Gout, unspecified; Z90.49 Acquired absence of other specified parts of digestive tract; Z98.1 Arthrodesis status; Z96.641 Presence of right artificial hip joint
CPT/HCPCS: 99283

== ENCOUNTER → 2017-09-17 | Outpatient (CLI) | payer OTHER ==
--- NOTE | 2017-09-17 16:17 | RADIOLOGY REPORT (SQ) ---
EXAM DESCRIPTION: CHEST PA/LATERAL COMPLETED DATE/TIME: 09/17/2017 3:54 pm REASON FOR STUDY: PRE-OP COMPARISON: 06/16/2017 EXAM PARAMETERS: NUMBER OF VIEWS: two views TECHNIQUE: Digital Frontal and Lateral radiographic views of the chest acquired. RADIATION DOSE: NA LIMITATIONS: none FINDINGS: LUNGS AND PLEURA: No opacities, masses or pneumothorax. No pleural effusion. MEDIASTINUM AND HILAR STRUCTURES: No masses or contour abnormalities. HEART AND VASCULAR STRUCTURES: Heart normal size. No evidence for failure. BONES: No acute findings. HARDWARE: None in the chest. OTHER: No other significant finding. IMPRESSION: NO SIGNIFICANT RADIOGRAPHIC FINDING IN THE CHEST. TECHNICAL DOCUMENTATION: JOB ID: [id number] [employer]- All Rights Reserved Reading location - IP/workstation name: [email or web address]
[2017-09-17 16:41] LABS: APPEARANCE,URINE CLEAR; BILIRUBIN,URINE NEGATIVE (NEGATIVE); COLOR,URINE YELLOW; GLUCOSE, URINE NEGATIVE (NEGATIVE); KETONES,URINE NEGATIVE (NEGATIVE); LEUKOCYTE ESTERASE,URINE NEGATIVE (NEGATIVE); NITRITE,URINE NEGATIVE (NEGATIVE); PROTEIN,URINE NEGATIVE (NEGATIVE); UROBILINOGEN,URINE NEGATIVE mg/dL (<2.0)
[2017-09-17 16:51] LABS: ABSOLUTE EOSINOPHILS # (AUTO) 0.2 10^3/uL (0.0-0.6); ABSOLUTE LYMPHOCYTES (AUTO) 2.2 10^3/uL (0.5-4.7); ABSOLUTE MONOCYTES (AUTO) 0.7 10^3/uL (0.1-1.4); ABSOLUTE NEUT (AUTO) 2.6 10^3/uL (1.7-8.2); BASOPHILS % (AUTO) 0.7 % (0-2); EOSINOPHILS % (AUTO) 3.2 % (0-6); HEMATOCRIT 40.3 % (37.9-51.0); HEMOGLOBIN 14.2 g/dL (13.5-17.0); LYMPHOCYTES % (AUTO) 39.1 % (13-45); MEAN CORPUSCULAR HEMOGLOBIN 30.9 pg (27.0-33.4); MEAN CORPUSCULAR HGB CONC 35.2 g/dL (32.0-36.0); MEAN CORPUSCULAR VOLUME 88 fl (80-97); MONOCYTES % (AUTO) 11.6 % (3-13); PLATELET COUNT 174 10^3/uL (150-450); RED BLOOD COUNT 4.59 10^6/uL (4.35-5.55); RED CELL DISTRIBUTION WIDTH 13.7 % (11.5-14.0); SEGMENTED NEUTROPHILS % (AUTO) 45.4 % (42-78); TOTAL CELLS COUNTED % (AUTO) 100 %; WHITE BLOOD COUNT 5.7 10^3/uL (4.0-10.5)
[2017-09-17 17:06] LABS: ANION GAP 12 (5-19); BLOOD UREA NITROGEN 20 mg/dL (7-20); CARBON DIOXIDE 28 mmol/L (22-30); CHLORIDE 105 mmol/L (98-107); GLUCOSE 85 mg/dL (75-110); POTASSIUM 5.1 mmol/L (3.6-5.0); SODIUM 145.2 mmol/L (137-145)
--- NOTE | 2017-09-17 23:01 | EKG REPORT ---
SEVERITY:- NORMAL ECG - SINUS RHYTHM : Confirmed by: Christine Smith 17-Sep-2017 23:00:31
== END ==
LOC: OD 15:18
PROVIDERS: ATTEND Orthopaedic Surgery
DX: Z01.810 Encounter for preprocedural cardiovascular examination (principal); Z01.812 Encounter for preprocedural laboratory examination; Z01.818 Encounter for other preprocedural examination
CPT/HCPCS: 36415; 71046; 80048; 81001; 85025; 93005; 93010

== ENCOUNTER 2017-10-12 05:26 | Inpatient (IN) | payer OTHER ==
[~2017-10-12 05:26] MED LIST changes: -IBUPROFEN 800 MG in DEXTROSE 5%-WATER 250 ML IV PRN; +IBUPROFEN 800 MG/NS 250 ML IV PRN; +VANCOMYCIN HCL 1,000 MG in DEXTROSE 5%-WATER 250 ML IV PRN
[2017-10-12] MEDS ORDERED: ONDANSETRON HCL INJ/PF 4 MG/2 ML SDV ONE (06:37)
[2017-10-12] MEDS ORDERED: FENTANYL CITRATE INJ/PF 100 MCG/2 ML AMPUL ONE (06:37)
[2017-10-12] MEDS ORDERED: DEXAMETHASONE SOD PHOSPHATE INJ 4 MG/1 ML VIAL ONE (06:37)
[2017-10-12] MEDS ORDERED: LIDOCAINE 2% INJ-PF (20 MG/ML) 10 ML AMPUL ONE (06:37)
[2017-10-12] MEDS ORDERED: MIDAZOLAM 2 MG/2 ML INJ ONE (06:37)
[2017-10-12] MEDS ORDERED: ACETAMINOPHEN 1,000 MG/100 ML RTUPB IV ONE (06:38)
[2017-10-12] MEDS ORDERED: PROPOFOL INJ 200 MG/20 ML VIAL IV ONE ×2 (06:38→09:11)
[2017-10-12] MEDS ORDERED: BUPIVACAINE HCL/DEX-WATER/PF 15 MG/2 ML AMPULE ONE (06:51)
[2017-10-12] MEDS ORDERED: THROMBIN (BOVINE) TOPICAL 20000 UNIT VIAL ONE (07:11)
[2017-10-12] MEDS ORDERED: BUPIVACAINE INJ/PF LIPOSOME/PF 266 MG/20 ML SDV ONE (07:12)
[2017-10-12] MEDS ORDERED: THROMBIN (BOVINE) 5000 UNIT EPITAXIS KIT ONE (07:12)
[2017-10-12] MEDS ORDERED: MEPERIDINE HCL/PF INJ 25 MG/1 ML DISP.SYRIN IV PRN (08:04)
[2017-10-12] MEDS ORDERED: PROMETHAZINE HCL INJ 25 MG/1 ML VIAL IV PRN ×2 (08:04)
[2017-10-12] MEDS ORDERED: DIPHENHYDRAMINE HCL 50 MG/ML VIAL IV PRN ×2 (08:04→09:00)
[2017-10-12] MEDS ORDERED: MORPHINE SULFATE 10 MG/ML INJ IV PRN ×4 (08:04→09:00)
[2017-10-12] MEDS ORDERED: ONDANSETRON HCL INJ/PF 4 MG/2 ML SDV IV PRN ×2 (08:04→09:00)
[2017-10-12] MEDS ORDERED: FENTANYL CITRATE INJ/PF 100 MCG/2 ML AMPUL IV PRN ×3 (08:04)
[2017-10-12] MEDS ORDERED: ALBUTEROL SULFATE HFA (90 MCG/PUFF) 8 GM MDI (1 MDI/ER DISP) IH PRN (08:59)
[2017-10-12] MEDS ORDERED: RINGERS SOLUTION,LACTATED 1,000 ML IV PRN (09:00)
[2017-10-12] MEDS ORDERED: ONDANSETRON 4 MG TAB.RAPDIS PO PRN (09:00)
[2017-10-12] MEDS ORDERED: ACETAMINOPHEN 325 MG TABLET PO PRN (09:00)
[2017-10-12] MEDS ORDERED: MORPHINE SULFATE 10 MG/ML INJ IM PRN (09:00)
[2017-10-12] MEDS ORDERED: ZOLPIDEM TARTRATE 5 MG TABLET PO PRN (09:00)
[2017-10-12] MEDS ORDERED: MAG HYDROX/AL HYDROX/SIMETH SUSP 30 ML UDCUP PO PRN (09:00)
--- NOTE | 2017-10-12 09:08 | Operative Report ---
Operative Report DATE OF SURGERY: 10/12/17 PREOPERATIVE DIAGNOSIS: Left hip avascular necrosis that is post core decompression OPERATION: Left hip conversion arthroplasty SURGEON: HUSSEIN LLOYD ANESTHESIA: Spinal TISSUE REMOVED OR ALTERED: Bone to pathology ESTIMATED BLOOD LOSS: 150 PROCEDURE: Implants used: Femur: Cecil Accolade 2 size 5 stem Acetabular shell: 54 mm hemispherical shell Liner: 36 mm flat cross-link polyethylene liner Head: 36 mm chrome cobalt head standard neck The patient is placed in a right lateral decubitus position on the operating table. The left lower extremity and hindquarter is prepped and draped in a sterile fashion. A curvilinear incision was made over the greater trochanter a posterior approach the hip was taken. The femoral head is dislocated and the femoral neck transected using an oscillating saw. Attention was next turned to the acetabulum. Soft tissues cleared off the acetabulum using electrocautery. The acetabulum was then prepared using a series of hemispherical reamers until a 54 millimeters reamer is seated. Subsequently a 54 millimeters [place] titanium hemispherical shell is impacted into position and secured with one screw. A standard flat 36 millimeters cross- link liner is impacted into the shell. Attention was next turned to the femur. Access is gained to the femoral canal using a box osteotome to the piriformis fossa. The femur is then prepared using a series of broaches until a number 5 broach is seated. A trial reduction was now performed using a 36 millimeters head with standard neck. Preoperative leg length was recreated and is excellent anterior posterior stability. A decision was made to proceed with the above construct. All trial implants were removed. The wound is irrigated with pulsed lavage. A number 5 stem is impacted into the femoral canal. A trial reduction was again performed with a 36 mm head and a standard neck. Findings as previously. The hip was dislocated one last time and the final chrome-cobalt head is impacted onto the trunnion. The hip was reduced. Wound is copiously irrigated with pulsed lavage. Sent closed in layers using interrupted Vicryl followed by luz. A sterile dressing is applied and the patient's returned to recovery room in satisfactory patient.
[2017-10-12] MEDS ORDERED: ALBUTEROL SULFATE HFA (90 MCG/PUFF) 200 PUFF/8.5 GM MDI IH PRN (09:21)
--- NOTE | 2017-10-12 09:58 | RADIOLOGY REPORT (SQ) ---
EXAM DESCRIPTION: PELVIS AP COMPLETED DATE/TIME: 10/12/2017 9:32 am REASON FOR STUDY: Post Op Long [place] in PACU M25.552 PAIN IN LEFT HIP COMPARISON: 07/13/2017 NUMBER OF VIEWS: One view TECHNIQUE: AP Pelvis LIMITATIONS: None. FINDINGS: MINERALIZATION: Normal. HIPS: Since the previous examination dated 07/13/2017, status post left total hip arthroplasty. Inte rval resolution of the right hip arthroplasty postoperative changes. No radiographic evidence of loo sening or infection. PELVIS AND SACRUM: No acute fracture or dislocation. No worrisome bone lesions. PUBIS AND ISCHIUM: No acute fracture. LOWER LUMBAR SPINE: L5-S1 posterior fusion with hardware, stable finding. SOFT TISSUES: Mild subcutaneous emphysematous changes in the soft tissues about the left hip and adj acent to the left iliac wing. These findings may be related to resolving post operative changes. OTHER: Stable multiple surgical metallic clips in the right lower quadrant of the abdomen. IMPRESSION: 1 Status post left hip arthroplasty since the prior study dated 07/13/2017. Mild subcuta neous emphysematous changes in the soft tissues adjacent to the left iliac wing and about the left hi p. These findings may be related to resolving post operative changes. 3. Interval resolution of the post operative right hip arthroplasty changes. TECHNICAL DOCUMENTATION: JOB ID: [id number] [employer]- All Rights Reserved Reading location - IP/workstation name: [email or web address]
[2017-10-12] MEDS ORDERED: EPINEPHRINE INJ/PF 1 MG/1 ML AMPULE ONE (10:55)
[2017-10-12] MEDS ORDERED: TRANEXAMIC ACID INJ/PF 1,000 MG/10 ML SDV IV ONE (11:00)
[2017-10-12] MEDS: PREGABALIN 75 MG CAPSULE PO SCH ×2 (11:02→17:32)
[2017-10-12] MEDS: OXYCODONE HCL IR 5 MG TABLET PO PRN (11:17)
[2017-10-12] MEDS: PRENATAL VITAMIN W DHA CAPSULE PO SCH (11:17)
[2017-10-12] MEDS: OXYCODONE HCL SR 10 MG TABLET PO SCH ×2 (11:17→21:04)
[2017-10-12] MEDS: GEMFIBROZIL 600 MG TABLET PO SCH ×2 (11:18→17:30)
[2017-10-12] MEDS: SENNOSIDES/DOCUSATE 8.6-50 MG 1 EACH TABLET PO SCH ×2 (11:18→17:30)
[2017-10-12] MEDS: FLUTICASONE PROPIONATE HFA 110 MCG/PUFF 12 GM MDI IH SCH ×2 (11:19→17:31)
[2017-10-12] MEDS: IBUPROFEN 800 MG in NORMAL SALINE 250 ML IV SCH ×2 (13:27→21:04)
[2017-10-12] MEDS ORDERED: ASPIRIN 81 MG TABLET, ENT COATED PO SCH (18:00)
[2017-10-12] MEDS ORDERED: NALOXONE HCL INJ/PF 0.4 MG/1 ML SDV ONE (19:11)
[2017-10-12] MEDS ORDERED: NORMAL SALINE 500 ML IV ONE (20:00)
[2017-10-12] MEDS ORDERED: NORMAL SALINE 1000 ML 1,000 ML IV PRN (20:23)
[2017-10-12] MEDS ORDERED: VANCOMYCIN HCL 1,000 MG in DEXTROSE 5%-WATER 250 ML IV ONE (21:01)
[2017-10-12] MEDS ORDERED: MONTELUKAST SODIUM 10 MG TABLET PO SCH (22:00)
[2017-10-12] MEDS ORDERED: BACLOFEN 20 MG TABLET PO SCH (22:00)
[2017-10-12] MEDS ORDERED: NYSTATIN TOPICAL POWDER 15 GM TP SCH (22:00)
[2017-10-12] MEDS ORDERED: ALLOPURINOL 300 MG TABLET PO SCH (22:00)
[2017-10-12] MEDS ORDERED: SUCRALFATE 1 GM TABLET PO SCH (22:00)
[2017-10-13] MEDS: OXYCODONE HCL IR 5 MG TABLET PO PRN (00:17)
[2017-10-13] MEDS: IBUPROFEN 800 MG in NORMAL SALINE 250 ML IV SCH (05:20)
[2017-10-13 05:37] LABS: HEMATOCRIT 30.5 % (37.9-51.0); MEAN CORPUSCULAR HEMOGLOBIN 31.3 pg (27.0-33.4); MEAN CORPUSCULAR VOLUME 87 fl (80-97); PLATELET COUNT 142 10^3/uL (150-450); RED BLOOD COUNT 3.51 10^6/uL (4.35-5.55); RED CELL DISTRIBUTION WIDTH 14.3 % (11.5-14.0); WHITE BLOOD COUNT 8.2 10^3/uL (4.0-10.5)
[2017-10-13 05:55] LABS: ANION GAP 8 (5-19); BLOOD UREA NITROGEN 12 mg/dL (7-20); CALCIUM 8.4 mg/dL (8.4-10.2); CARBON DIOXIDE 25 mmol/L (22-30); CHLORIDE 109 mmol/L (98-107); GLUCOSE 107 mg/dL (75-110); SODIUM 142.1 mmol/L (137-145)
[2017-10-13] MEDS ORDERED: LANSOPRAZOLE 30 MG TAB.RAP.DR PO SCH (06:00)
--- NOTE | 2017-10-13 06:41 | PDOC DISCHARGE SUMMARY ---
General - Admit/Disc Date/PCP Admission Date/Primary Care Provider: 10/12/17 05:26 NISHA KOO, Discharge Date: 10/13/17 - Discharge Diagnosis (1) Avascular necrosis of bone of left hip Is this a current diagnosis for this admission?: Yes - Additional Information Resuscitation Status: Full Code Discharge Diet: As Tolerated, Regular Discharge Activity: Balance Activity w/Rest, No Driving, No tub bath Home Medications: Albuterol Sulfate [Proair HFA] 2 puff IH Q4HP PRN #0 03/09/12 Fluticasone Propionate [Flovent Hfa 110 Mcg Inhalation Aerosol 12 gm] 2 puff IH BID 12/01/12 Gemfibrozil [Lopid 600 mg Tablet] 600 mg PO BID 12/01/12 Montelukast Sodium [Singulair 10 mg Tablet] 10 mg PO QHS 03/14/13 Baclofen [Baclofen 20 mg Tablet] 20 mg PO QHS 09/18/16 Celecoxib [Celebrex 200 mg Capsule] 200 mg PO Q12 09/18/16 Methocarbamol [Robaxin 500 mg Tablet] 1,000 mg PO Q6HP PRN 09/18/16 Allopurinol [Zyloprim 300 mg Tablet] 300 mg PO QHS 07/13/17 Pantoprazole Sodium [Protonix] 40 mg PO QAM 07/13/17 Sucralfate [Carafate 1 gm Tablet] 1 gm PO QHS 07/13/17 Tapentadol Hydrochloride [Nucynta] 100 mg PO Q8HP PRN 09/17/17 Glucosamine/D3/Boswellia Lizbeth [Osteo Bi-Flex Tablet] 2 tab PO DAILY 10/08/17 Aspirin [Ecotrin 81 mg EC Tablet] 81 mg PO QPM tabec 10/13/17 Oxycodone HCl [Oxy-Ir 5 mg Tablet] 5 mg PO Q6HP PRN tablet 10/13/17 History of Present Illness History of Present Illness: KEI REAL is a 52 year old male Patient is a 52-year-old with a steroid-induced bilateral femoral head avascular necrosis is status post right hip arthroplasty in the past now with progressive left hip pain and functional disability secondary to avascular necrosis. Patient is admitted for elective left hip arthroplasty. Hospital Course Hospital Course: Patient is admitted through the operating where he undergoes uncomplicated left hip arthroplasty. Is returned to floor in satisfactory condition. He ambulates 80 feet with physical therapy on the day of surgery. Subsequently that day the patient becomes over narcotize and is resuscitated with a combination of Narcan and crystalloid. This reverses the patient's hypotension as well as mental status changes. Physical Exam Vital Signs: Temp Pulse Resp BP Pulse Ox 36.4 C 87 16 103/70 100 10/13/17 04:00 10/13/17 04:00 10/13/17 04:00 10/13/17 04:00 10/13/17 04:00 Intake & Output 10/11/17 10/12/17 10/13/17 06:59 06:59 06:59 Intake Total 0 48005 Output Total 7725 Balance 0 5729 Weight 106.2 kg General appearance: PRESENT: no acute distress Head exam: PRESENT: normocephalic Respiratory exam: PRESENT: unlabored Cardiovascular exam: PRESENT: RRR Pulses: PRESENT: +1 pedal pulses bilateral Vascular exam: PRESENT: normal capillary refill GI/Abdominal exam: PRESENT: soft Rectal exam: PRESENT: deferred Extremities exam: PRESENT: other - Left hip dressing changed on the day of discharge. Wound is well approximated with luz. There is no drainage. There is a fair amount of surrounding ecchymosis. Small amount of induration. Leg lengths are equal. Distal neurovascular examination is intact. Neurological exam: PRESENT: alert, awake, oriented to person, oriented to place , oriented to time, oriented to situation, CN II-XII grossly intact. ABSENT: motor sensory deficit Psychiatric exam: PRESENT: appropriate affect, normal mood. ABSENT: homicidal ideation, suicidal ideation Skin exam: PRESENT: dry, intact, warm. ABSENT: cyanosis, rash Results Laboratory Results: 10/13/17 05:18 10/13/17 05:18 10/12/17 10/13/17 10/13/17 05:57 05:18 05:18 WBC 8.2 RBC 3.51 L Hgb 11.0 L Hct 30.5 L MCV 87 MCH 31.3 MCHC 36.0 RDW 14.3 H Plt Count 142 L Sodium 142.1 Potassium 4.0 Chloride 109 H Carbon Dioxide 25 Anion Gap 8 BUN 12 Creatinine 0.76 Est GFR ( Amer) > 60 Est GFR (Non-Af Amer) > 60 Glucose 107 Calcium 8.4 Blood Type A POSITIVE Antibody Screen NEGATIVE Impressions: Pelvis X-Ray 10/12/17 09:02 IMPRESSION: 1 Status post left hip arthroplasty since the prior study dated . Mild subcutaneous emphysematous changes in the soft tissues adjacent to the left iliac wing and about the left hip. These findings may be related to resolving post operative changes. 3. Interval resolution of the post operative right hip arthroplasty changes. Status: Imported from PACS Qualifiers - * PATIENT BEING DISCHARGED WITH ANY OF THE FOLLOWING DIAGNOSIS: No VTE patient discharged on overlapping Therapy?: Yes Plan Discharge Plan: Patient be discharged home with home health services and DME. Follow-up with Dr. Marta Rosenbaum [place] for surgery in 2 weeks for staple removal.
[2017-10-13] MEDS: FLUTICASONE PROPIONATE HFA 110 MCG/PUFF 12 GM MDI IH SCH (10:22)
[2017-10-13] MEDS: GEMFIBROZIL 600 MG TABLET PO SCH (10:22)
[2017-10-13] MEDS: SENNOSIDES/DOCUSATE 8.6-50 MG 1 EACH TABLET PO SCH (10:23)
[2017-10-13] MEDS: OXYCODONE HCL SR 10 MG TABLET PO SCH (10:23)
[2017-10-13] MEDS: PREGABALIN 75 MG CAPSULE PO SCH (10:24)
[2017-10-13] MEDS: PRENATAL VITAMIN W DHA CAPSULE PO SCH (10:24)
[2017-10-13 10:57] VITALS: BP 103/70
== END 2017-10-13 11:40 | disposition home health service (06) | DRG 470 ==
LOC: INOR 05:26 → 4S 10:18
PROVIDERS: ADMIT Orthopaedic Surgery; ATTEND Orthopaedic Surgery
PROC: 0SRB02A Replacement of Left Hip Joint with Metal on Polyethylene Synthetic Substitute, Uncemented, Open Approach (ICD-10-PCS; principal; 2017-10-12 07:30)
DX: M87.852 Other osteonecrosis, left femur (principal); E78.5 Hyperlipidemia, unspecified; J45.909 Unspecified asthma, uncomplicated; M10.9 Gout, unspecified; K21.9 Gastro-esophageal reflux disease without esophagitis; Z96.641 Presence of right artificial hip joint
CPT/HCPCS: 01214; 36415; 72170; 80048; 82962; 84132; 85027; 86850; 86900; 86901; 88304; 88311; 94799; C1776; C9290; J0131; J0171; J0690; J1100; J1741; J2250; J2270; J2310; J2405; J2704; J3010; J3370; J3490; J7040; J7050; J7060

== ENCOUNTER 2017-11-04 00:17 | Inpatient (IN) | payer OTHER ==
[2017-11-04] MEDS ORDERED: NORMAL SALINE 1000 ML 1,000 ML IV ONE (02:51)
[2017-11-04] MEDS ORDERED: VANCOMYCIN HCL INJ 1000 MG VIAL IV ONE (02:51)
[2017-11-04] MEDS ORDERED: PIPERACILLIN/TAZOBACTAM 4.5 GM VIAL IV ONE (02:51)
--- NOTE | 2017-11-04 03:41 | ER Document Report ---
ED General - General Chief Complaint: Fever Stated Complaint: FEVER Time Seen by Provider: 11/04/17 02:38 TRAVEL OUTSIDE OF THE [place] IN LAST 30 DAYS: No - HPI Patient complains to provider of: pain and swelling in the hip Onset: Other - 52-year-old male status post left hip replacement who presents for 1 day of worsening swelling as well as fevers in the left hip. He notes that he has swollen tremendously while at home and has become increasingly painful. He denies any drainage but does note that the swelling is much worse. Nothing is made to swelling any better, time seems to be making it worse. - Related Data Allergies/Adverse Reactions: strawberry [[place]] Allergy (Severe, Verified 10/12/17 06:22) Hives, throat swells Steri strips Allergy (Severe, Uncoded 09/17/17 11:11) Blisters the skin ADHESIVES Adverse Reaction (Intermediate, Uncoded 09/17/17 11:11) Blisters Past Medical History - General Information source: Patient - Social History Smoking Status: Never Smoker Chew tobacco use (# tins/day): No Frequency of alcohol use: Occasional Drug Abuse: None Family History: Reviewed & Not Pertinent Patient has suicidal ideation: No Patient has homicidal ideation: No - Past Medical History Cardiac Medical History: Denies: Hx Atrial Fibrillation, Hx Congestive Heart Failure, Hx Coronary Artery Disease, Hx Heart Attack, Hx Hypercholesterolemia, Hx Hypertension, Hx Peripheral Vascular Disease, Hx Pulmonary Embolism, Hx Heart Murmur Pulmonary Medical History: Reports: Hx Asthma - RESTRICTIVE AIRWAY DISEASE, Hx Bronchitis - 3-4 X/YEAR, Hx Pneumonia - X2, Hx Sleep Apnea - HX C-PAP USE, NONE CURRENTLY Denies: Hx COPD, Hx Respiratory Failure, Hx Tuberculosis Neurological Medical History: Denies: Hx Cerebrovascular Accident, Hx Seizures Endocrine Medical History: Denies: Hx Hyperthyroidism, Hx Hypothyroidism Renal/ Medical History: Reports: Hx Kidney Stones. Denies: Hx Benign Prostatic Hyperplasia, Hx End Stage Renal Disease, Hx Peritoneal Dialysis Malignancy Medical History: Denies Hx Leukemia, Denies Hx Lung Cancer GI Medical History: Reports: Hx Gastroesophageal Reflux Disease, Hx Irritable Bowel. Denies: Hx Crohn's Disease, Hx Hepatitis, Hx Hiatal Hernia, Hx Liver Failure, Hx Pancreatitis, Hx Ulcer Musculoskeletal Medical History: Reports Hx Arthritis, Denies Hx Fibromyalgia, Denies Hx Multiple Sclerosis, Denies Hx Muscular Dystrophy Psychiatric Medical History: Denies: Hx Dementia Traumatic Medical History: Reports: Hx Fractures - nose Infectious Medical History: Denies: Hx Hepatitis, Hx HIV Past Surgical History: Reports: Hx Appendectomy - 2011, Hx Cholecystectomy - 2011, Hx Neurologic Surgery - L5-S1 spinal fusion, Hx Orthopedic Surgery - rt hip replaced 2017. Denies: Hx Bowel Surgery - COLONOSCOPY 2012, EGD 2013, Hx Colostomy, Hx Coronary Artery Bypass Graft, Hx Gastric Bypass Surgery, Hx Herniorrhaphy, Hx Open Heart Surgery, Hx Pacemaker, Hx Tonsillectomy - Immunizations Hx Diphtheria, Pertussis, Tetanus Vaccination: Yes - tetanus only Hx Pneumococcal Vaccination: 03/30/13 Review of Systems - Review of Systems -: Yes All other systems reviewed and negative Physical Exam - Vital signs Vitals: Temp Pulse Resp BP Pulse Ox 98.7 F 134 H 20 107/76 97 11/04/17 00:22 11/04/17 00:22 11/04/17 00:22 11/04/17 00:22 11/04/17 00:22 - General General appearance: Alert In distress: Mild - HEENT Head: Normocephalic Eyes: Normal Conjunctiva: Normal Cornea: Normal - Respiratory Respiratory status: No respiratory distress Chest status: Nontender Breath sounds: Normal Chest palpation: Normal - Cardiovascular Rhythm: Regular, Tachycardia Heart sounds: Normal auscultation Murmur: No - Abdominal Inspection: Normal Distension: No distension Bowel sounds: Normal Tenderness: Nontender - Back Back: Normal - Extremities Hip: Other - Patient has a left surgical incision wound which is erythematous fluctuant and markedly tender to the touch, it is also hot, there is no active drainage, Course - Re-evaluation Re-evalutation: 11/04/17 04:14 This 52-year-old man presents for evaluation of concern for swelling and pain in his hip after having a hip replacement approximately [address] Lloyd. On examination he has an obviously erythematous and swollen left hip inferior to the surgical incision scar. Is not actively draining at this time it is warm to the touch and painful. Patient does demonstrate tachycardia as well as fever, have a concern for systemic infection developing. Will initiate antibiotics PIV as well as administration of fluid. We will plan for CT imaging, will plan for discussion with on-call orthopedic surgeon Dr. Yen for consideration of admission and likely surgical debridement. Have discussed case with on-call surgeon Dr. Yen who agrees for admission at this time. We will initiate n.p.o. status for this patient, will reassess as necessary in the emergency department but will plan for admission to the orthopedic service. Patient's heart rate is improved with the administration of fluids. - Vital Signs Vital signs: Temp Pulse Resp BP Pulse Ox 99.2 F 134 H 20 107/76 97 11/04/17 02:42 11/04/17 00:22 11/04/17 00:22 11/04/17 00:22 11/04/17 00:22 - Laboratory Result Diagrams: 11/04/17 03:24 11/04/17 03:24 Laboratory results interpreted by me: 11/04/17 11/04/17 03:24 03:24 WBC 14.4 H RBC 4.26 L Hgb 13.0 L Hct 37.7 L RDW 15.2 H Seg Neutrophils % 85.3 H Lymphocytes % 7.0 L Absolute Neutrophils 12.3 H VBG pH 7.46 H VBG pCO2 33.5 L Critical Care Note - Critical Care Note Total time excluding time spent on procedures (mins): 30 - Assumed care of this patient time which he had tachycardia as well as fevers in the lower than normal blood pressure with an obvious source of infection in the left hip, I was at the bedside also coordinated admission consultation Discharge - Discharge Clinical Impression: Infection, Hip pain Post op infection Qualifiers: Encounter type: initial encounter Qualified Code(s): T81.4XXA - Infection following a procedure, initial encounter Condition: Poor Disposition: ADMITTED INPATIENT Unit Admitted: Surgical Floor Referrals: HUSSEIN LLOYD MD [Primary Care Provider] - Follow up as needed
[2017-11-04 03:58] LABS: ABSOLUTE MONOCYTES (AUTO) 1.1 10^3/uL (0.1-1.4); ABSOLUTE NEUT (AUTO) 12.3 10^3/uL (1.7-8.2); BASOPHILS % (AUTO) 0.2 % (0-2); EOSINOPHILS % (AUTO) 0.1 % (0-6); HEMATOCRIT 37.7 % (37.9-51.0); MEAN CORPUSCULAR HEMOGLOBIN 30.6 pg (27.0-33.4); MEAN CORPUSCULAR HGB CONC 34.6 g/dL (32.0-36.0); MEAN CORPUSCULAR VOLUME 89 fl (80-97); MONOCYTES % (AUTO) 7.4 % (3-13); PLATELET COUNT 239 10^3/uL (150-450); RED BLOOD COUNT 4.26 10^6/uL (4.35-5.55); RED CELL DISTRIBUTION WIDTH 15.2 % (11.5-14.0); SEGMENTED NEUTROPHILS % (AUTO) 85.3 % (42-78); TOTAL CELLS COUNTED % (AUTO) 100 %; WHITE BLOOD COUNT 14.4 10^3/uL (4.0-10.5)
[2017-11-04 03:59] LABS: VENOUS BLOOD BASE EXCESS 0.3 mmol/L; VENOUS BLOOD HCO3 23.2 mmol/L (20-32); VENOUS BLOOD PCO2 33.5 mmHg (35-63); VENOUS BLOOD PH 7.46 (7.30-7.42)
[2017-11-04 04:13] LABS: ALANINE AMINOTRANSFERASE 32 U/L (21-72); ALKALINE PHOSPHATASE 95 U/L (38-126); ANION GAP 14 (5-19); ASPARTATE AMINO TRANSFERASE 19 U/L (17-59); BILIRUBIN,DIRECT 0.3 mg/dL (0.0-0.4); BLOOD UREA NITROGEN 17 mg/dL (7-20); CALCIUM 9.3 mg/dL (8.4-10.2); CARBON DIOXIDE 23 mmol/L (22-30); CHLORIDE 102 mmol/L (98-107); GLUCOSE 102 mg/dL (75-110); POTASSIUM 3.7 mmol/L (3.6-5.0); SODIUM 138.8 mmol/L (137-145); TOTAL PROTEIN 6.4 g/dL (6.3-8.2)
[2017-11-04 04:24] LABS: INTERNATIONAL RATION (INR) 1.14; PROTHROMBIN TIME 15.2 SEC (11.4-15.4)
--- NOTE | 2017-11-04 04:41 | RADIOLOGY REPORT (SQ) ---
EXAM DESCRIPTION: CT PELVIS WITHOUT IV CONTRAST COMPLETED DATE/TME: 11/04/2017 02:53 CLINICAL HISTORY: 52 years Male, concern for post operative abscess in the left hip Comparison: None. Technique: No contrast. Coronal and sagittal reformat. This exam was performed according to our departmental dose-optimization program, which includes automated exposure control, adjustment of the mA and/or kV according to patient size and/or use of iterative reconstruction technique.[facility]: Dose Right [facility]: CareDose [facility]: Dose Right [facility]: Teradose 4D [facility]: Smart [employer] LIMITATIONS: None Findings: Encapsulated fluid collection in the subcutaneous soft tissues lateral to the left hip measures 9 x 7 x 8 cm and may indicate abscess, complex seroma, or chronic hematoma. Bilateral total hip arthroplasty, L5-S1 hardware fusion, appendectomy clips, moderate right lateral soft tissue scar. Unenhanced lower abdominopelvic structures, and musculoskeleton appear otherwise grossly unremarkable. Impression: 9 cm cystic mass of the subcutaneous left hip; differential diagnosis includes abscess, complex seroma, and chronic hematoma.
--- NOTE | 2017-11-04 07:19 | PDOC H&P ---
History of Present Illness Admission Date/PCP: 11/04/17 05:11 History of Present Illness: KEI REAL is a 52 year old male 52-year-old white male approximately 3 weeks status post left hip arthroplasty. Patient was seen in the office approximately week ago and doing well. Last night he began to develop erythema about the wound site. He presented to the emergency room for further evaluation and therapy. He remains afebrile with minimal tenderness. There is been a resolving ecchymosis about the hip since the time of surgery. There is a leukocytosis of 14.4 thousand with sedimentation rate and C-reactive protein pending. Past Medical History Cardiac Medical History: Denies: Atrial Fibrillation, Congestive Heart Failure, Coronary Artery Disease, Myocardial Infarction, Hyperlipidema, Hypertension, Peripheral Vascular Disease, Pulmonary Embolism, Heart Murmur Pulmonary Medical History: Reports: Asthma - RESTRICTIVE AIRWAY DISEASE, Bronchitis - 3-4 X/YEAR, Pneumonia - X2, Sleep Apnea - HX C-PAP USE, NONE CURRENTLY Denies: Chronic Obstructive Pulmonary Disease (COPD), Respiratory Failure, Tuberculosis Neurological Medical History: Denies: Seizures Endocrine Medical History: Denies: Hyperthyroidism, Hypothyroidism Renal/ Medical History: Denies: End Stage Renal Disease Malignancy Medical History: Denies: Breast Cancer, Cervical Cancer, Leukemia, Lung Cancer, Ovarian Cancer GI Medical History: Reports: Gastroesophageal Reflux Disease Denies: Crohn's Disease, Hepatitis, Hiatal Hernia Musculoskeltal Medical History: Reports: Arthritis Denies: Fibromyalgia Psychiatric Medical History: Denies: Dementia Hematology: Denies: Anemia, Hemophilia, Sickle Cell Disease Infectious Medical History: Denies: HIV Past Surgical History Past Surgical History: Reports: Appendectomy - 2011, Cholecystectomy - 2011, Orthopedic Surgery - Left hip replaced October 12, 2017 Denies: Colostomy, Coronary Artery Bypass Graft, Gastric Bypass Surgery, Herniorrhaphy, Pacemaker, Tonsillectomy Social History Information Source: Patient, DrPhoebe Smith, [facility] Records Lives with: Spouse/Significant other Smoking Status: Never Smoker Frequency of Alcohol Use: None Hx Recreational Drug Use: No Hx Prescription Drug Abuse: No Family History Family History: Reviewed & Not Pertinent Parental Family History Reviewed: No Children Family History Reviewed: No Sibling(s) Family History Reviewed.: No Medication/Allergy Home Medications: Albuterol Sulfate [Proair HFA] 2 puff IH Q4HP PRN #0 03/09/12 Fluticasone Propionate [Flovent Hfa 110 Mcg Inhalation Aerosol 12 gm] 2 puff IH BID 12/01/12 Gemfibrozil [Lopid 600 mg Tablet] 600 mg PO BID 12/01/12 Montelukast Sodium [Singulair 10 mg Tablet] 10 mg PO QHS 03/14/13 Baclofen [Baclofen 20 mg Tablet] 20 mg PO QHS 09/18/16 Celecoxib [Celebrex 200 mg Capsule] 200 mg PO Q12 09/18/16 Methocarbamol [Robaxin 500 mg Tablet] 1,000 mg PO Q6HP PRN 09/18/16 Allopurinol [Zyloprim 300 mg Tablet] 300 mg PO QHS 07/13/17 Pantoprazole Sodium [Protonix] 40 mg PO QAM 07/13/17 Sucralfate [Carafate 1 gm Tablet] 1 gm PO QHS 07/13/17 Tapentadol Hydrochloride [Nucynta] 100 mg PO Q8HP PRN 09/17/17 Glucosamine/D3/Boswellia Lizbeth [Osteo Bi-Flex Tablet] 2 tab PO DAILY 10/08/17 Aspirin [Ecotrin 81 mg EC Tablet] 81 mg PO QPM tabec 10/13/17 Oxycodone HCl [Oxy-Ir 5 mg Tablet] 5 mg PO Q6HP PRN tablet 10/13/17 Allergies/Adverse Reactions: strawberry [[place]] Allergy (Severe, Verified 10/12/17 06:22) Hives, throat swells Steri strips Allergy (Severe, Uncoded 09/17/17 11:11) Blisters the skin ADHESIVES Adverse Reaction (Intermediate, Uncoded 09/17/17 11:11) Blisters Review of Systems All systems: as per PMH Constitutional: ABSENT: chills, fever(s), headache(s), weight gain, weight loss Physical Exam Vital Signs: Temp Pulse Resp BP Pulse Ox 37.0 C 103 H 16 106/67 94 11/04/17 05:43 11/04/17 05:43 11/04/17 05:43 11/04/17 05:43 11/04/17 05:43 Physical Exam: Overweight middle-aged white male lying in [facility]. Patient lying on his right side. Patient in no acute distress. Accompanied by his . General appearance: PRESENT: no acute distress Head exam: PRESENT: normocephalic Respiratory exam: PRESENT: unlabored Cardiovascular exam: PRESENT: tachycardia Vascular exam: PRESENT: normal capillary refill GI/Abdominal exam: PRESENT: soft Rectal exam: PRESENT: deferred Extremities exam: PRESENT: other - Left hip incision is well approximated and is dry. There is a surrounding rim of erythema of about 6 cm. It is nontender. It somewhat ballotable. Surrounding this is a rim of ecchymosis which seems to be resolving approximately 4 cm. Leg lengths are equal. Distal neurovascular examination is intact. Passive range of motion is without significant discomfort. Neurological exam: PRESENT: alert, awake, oriented to person, oriented to place , oriented to time, oriented to situation. ABSENT: motor sensory deficit Psychiatric exam: PRESENT: appropriate affect, normal mood. ABSENT: homicidal ideation, suicidal ideation Skin exam: PRESENT: dry, intact, warm. ABSENT: cyanosis, rash Results Status: Imported from PACS Assessment & Plan - Diagnosis (1) History of left hip replacement Is this a current diagnosis for this admission?: Yes Plan: 52-year-old status post left hip arthroplasty approximately 3 weeks ago now with increasing erythema, leukocytosis, and tachycardia. Awaiting completion of laboratory studies and then anticipate the need for an aspiration to determine the nature of the fluid collection about the hip seen on CT scan. - Time Time Spent: 30 to 50 Minutes Anticipated discharge: Other Within: Other
[2017-11-04] MEDS ORDERED: TRANEXAMIC ACID INJ/PF 1,000 MG/10 ML SDV IV PRN (10:18)
[2017-11-04] MEDS: RINGERS SOLUTION,LACTATED 1,000 ML IV PRN ×2 (11:11→17:46)
[2017-11-04] MEDS ORDERED: BUPIVACAINE HCL/DEX-WATER/PF 15 MG/2 ML AMPULE ONE ×2 (11:27→13:32)
--- NOTE | 2017-11-04 11:38 | EKG REPORT ---
SEVERITY:- OTHERWISE NORMAL ECG - SINUS TACHYCARDIA : Confirmed by: Ijeoma Witt MD 04-Nov-2017 11:37:00
[2017-11-04] MEDS ORDERED: BACITRACIN INJ 50,000 UNIT VIAL ONE (12:41)
[2017-11-04] MEDS ORDERED: THROMBIN (BOVINE) 5000 UNIT EPITAXIS KIT ONE (12:41)
[2017-11-04] MEDS ORDERED: THROMBIN (BOVINE) TOPICAL 20000 UNIT VIAL ONE (12:41)
[2017-11-04] MEDS ORDERED: MIDAZOLAM 2 MG/2 ML INJ ONE (13:30)
[2017-11-04] MEDS ORDERED: PROPOFOL INJ 200 MG/20 ML VIAL IV ONE ×2 (13:30→14:35)
[2017-11-04] MEDS ORDERED: FENTANYL CITRATE INJ/PF 100 MCG/2 ML AMPUL ONE (13:30)
[2017-11-04] MEDS ORDERED: EPHEDRINE SULFATE INJ 50 MG/1 ML AMPULE ONE (13:30)
[2017-11-04] MEDS ORDERED: ACETAMINOPHEN 1,000 MG/100 ML RTUPB IV ONE (13:38)
[2017-11-04] MEDS ORDERED: TRANEXAMIC ACID INJ/PF 1,000 MG/10 ML SDV IV ONE ×3 (13:38→16:00)
[2017-11-04] MEDS ORDERED: BUPIVACAINE INJ/PF LIPOSOME/PF 266 MG/20 ML SDV ONE (14:25)
[2017-11-04] MEDS ORDERED: PROMETHAZINE HCL INJ 25 MG/1 ML VIAL IV PRN ×2 (14:27)
[2017-11-04] MEDS ORDERED: MORPHINE SULFATE 10 MG/ML INJ IV PRN ×4 (14:27→14:34)
[2017-11-04] MEDS ORDERED: MEPERIDINE HCL/PF INJ 25 MG/1 ML DISP.SYRIN IV PRN (14:27)
[2017-11-04] MEDS ORDERED: FENTANYL CITRATE INJ/PF 100 MCG/2 ML AMPUL IV PRN ×3 (14:27)
[2017-11-04] MEDS ORDERED: DIPHENHYDRAMINE HCL 50 MG/ML VIAL IV PRN ×2 (14:27→14:34)
[2017-11-04] MEDS ORDERED: TAPENTADOL HYDROCHLORIDE 100 MG PO PRN (14:32)
[2017-11-04] MEDS ORDERED: ALBUTEROL SULFATE HFA (90 MCG/PUFF) 8 GM MDI (1 MDI/ER DISP) IH PRN (14:32)
[2017-11-04] MEDS ORDERED: ONDANSETRON 4 MG TAB.RAPDIS PO PRN (14:34)
[2017-11-04] MEDS ORDERED: RINGERS SOLUTION,LACTATED 1,000 ML IV PRN (14:34)
[2017-11-04] MEDS ORDERED: ACETAMINOPHEN 325 MG TABLET PO PRN (14:34)
[2017-11-04] MEDS ORDERED: MAG HYDROX/AL HYDROX/SIMETH SUSP 30 ML UDCUP PO PRN (14:34)
[2017-11-04] MEDS ORDERED: OXYCODONE HCL IR 5 MG TABLET PO PRN (14:34)
[2017-11-04] MEDS ORDERED: MORPHINE SULFATE 10 MG/ML INJ IM PRN (14:34)
[2017-11-04] MEDS ORDERED: ZOLPIDEM TARTRATE 5 MG TABLET PO PRN (14:34)
[2017-11-04] MEDS ORDERED: ONDANSETRON HCL INJ/PF 4 MG/2 ML SDV IV PRN (14:34)
--- NOTE | 2017-11-04 14:41 | Operative Report ---
Operative Report DATE OF SURGERY: 11/04/17 PREOPERATIVE DIAGNOSIS: Left periprosthetic hip infection OPERATION: Irrigation debridement [place], head and liner exchange SURGEON: HUSSEIN LLOYD ANESTHESIA: Spinal TISSUE REMOVED OR ALTERED: Cultures 2 to microbiology. Implants to CSS ESTIMATED BLOOD LOSS: 100 PROCEDURE: With the patient in a right lateral decubitus position on the operating table the left lower extremity hunker prepped and draped in sterile fashion. The original curvilinear incision is opened. Upon entering the space deep to the iliotibial band a large amount of what appears to be hematoma is evacuated. This is sent for culture and sensitivity. The hip was subsequently dislocated. The femoral head disimpacted and the underlying acetabular liner removed. The wound is jesenia care with pulse lavage using 3 L of normal saline containing bacitracin. The wound was then to closely debrided of any nonviable tissue and previous Vicryl sutures. A new polyethylene liner is impacted into the acetabular component. New femoral head is impacted onto the femoral trunnion. The hip was reduced. A subsequent closed in layers with interrupted PDS followed by luz. A sterile compressive dressing was applied and the patient 's return to the PACU in satisfactory condition.
[2017-11-04] MEDS ORDERED: ALBUTEROL SULFATE HFA (90 MCG/PUFF) 200 PUFF/8.5 GM MDI IH PRN (14:54)
[2017-11-04] MEDS: SUCRALFATE 1 GM TABLET PO SCH ×2 (17:41→21:58)
[2017-11-04] MEDS: PREGABALIN 75 MG CAPSULE PO SCH (17:41)
[2017-11-04] MEDS: GEMFIBROZIL 600 MG TABLET PO SCH (17:46)
[2017-11-04] MEDS: SENNOSIDES/DOCUSATE 8.6-50 MG 1 EACH TABLET PO SCH (17:46)
[2017-11-04] MEDS ORDERED: FLUTICASONE PROPIONATE HFA 110 MCG/PUFF 12 GM MDI IH SCH (18:00)
[2017-11-04] MEDS: VANCOMYCIN HCL 1,500 MG in DEXTROSE 5%-WATER 250 ML IV SCH (18:06)
[2017-11-04] MEDS: BACLOFEN 20 MG TABLET PO SCH (21:58)
[2017-11-04] MEDS: OXYCODONE HCL SR 10 MG TABLET PO SCH (21:58)
[2017-11-04] MEDS: MONTELUKAST SODIUM 10 MG TABLET PO SCH (21:58)
[2017-11-04] MEDS: ALLOPURINOL 300 MG TABLET PO SCH (21:58)
[2017-11-04] MEDS: IBUPROFEN 800 MG in NORMAL SALINE 250 ML IV SCH (23:58)
[2017-11-05] MEDS: CEFTRIAXONE 2 GM/D5W RTU 2 GM/50 ML RTUPB IV SCH ×2 (01:16→22:17)
[2017-11-05] MEDS ORDERED: VANCOMYCIN HCL 1,000 MG in DEXTROSE 5%-WATER 250 ML IV ONE (02:34)
[2017-11-05] MEDS ORDERED: LANSOPRAZOLE 30 MG TAB.RAP.DR PO SCH (06:00)
[2017-11-05 06:10] LABS: HEMATOCRIT 32.8 % (37.9-51.0); HEMOGLOBIN 11.4 g/dL (13.5-17.0); MEAN CORPUSCULAR HEMOGLOBIN 31.1 pg (27.0-33.4); MEAN CORPUSCULAR HGB CONC 34.7 g/dL (32.0-36.0); MEAN CORPUSCULAR VOLUME 89 fl (80-97); PLATELET COUNT 187 10^3/uL (150-450); RED BLOOD COUNT 3.67 10^6/uL (4.35-5.55); RED CELL DISTRIBUTION WIDTH 15.4 % (11.5-14.0); WHITE BLOOD COUNT 9.7 10^3/uL (4.0-10.5)
--- NOTE | 2017-11-05 06:26 | PDOC PROGRESS REPORT ---
Subjective Progress Note for:: 11/05/17 Reason For Visit: LEFT HIP PERIPROSTHETIC INFECTION 52-year-old white male approximately 3 weeks status post left hip arthroplasty for avascular necrosis now postop day 1 from an I&D for periprosthetic infection. Patient remains afebrile overnight and his pain seems to be well- controlled with IV ibuprofen Physical Exam Vital Signs: Temp Pulse Resp BP Pulse Ox 37.2 C 112 H 17 109/69 97 11/04/17 23:35 11/04/17 23:35 11/04/17 23:35 11/04/17 23:35 11/04/17 23:35 Intake & Output 11/03/17 11/04/17 11/05/17 06:59 06:59 06:59 Intake Total 2086 Output Total 75 2011 General appearance: PRESENT: no acute distress Head exam: PRESENT: normocephalic Respiratory exam: PRESENT: unlabored Cardiovascular exam: PRESENT: RRR Pulses: PRESENT: +1 pedal pulses bilateral GI/Abdominal exam: PRESENT: soft Rectal exam: PRESENT: deferred Extremities exam: PRESENT: other - Left hip dressing clean dry and intact. Leg lengths are equal. Distal neurovascular examination is intact. Neurological exam: PRESENT: alert, awake, oriented to person, oriented to place , oriented to time, oriented to situation. ABSENT: motor sensory deficit Psychiatric exam: PRESENT: appropriate affect, normal mood. ABSENT: homicidal ideation, suicidal ideation Skin exam: PRESENT: dry, intact, warm. ABSENT: cyanosis, rash Results Laboratory Results: 11/05/17 05:46 11/05/17 05:46 WBC 9.7 RBC 3.67 L Hgb 11.4 L Hct 32.8 L MCV 89 MCH 31.1 MCHC 34.7 RDW 15.4 H Plt Count 187 Assessment & Plan - Diagnosis (1) History of left hip replacement Is this a current diagnosis for this admission?: Yes Plan: Patient to be mobilized with physical therapy and weightbearing as tolerated basis. PICC line to be placed today. Currently on empiric vancomycin plus Rocephin. Plan will be to target the antibiotic therapy once culture and sensitivity results are available. Anticipate the need for 6 weeks of IV antibiotic therapy. - Time Time Spent with patient: 15-24 minutes Anticipated discharge: Home with Homehealth Within: Other
[2017-11-05 06:36] LABS: ANION GAP 12 (5-19); BLOOD UREA NITROGEN 10 mg/dL (7-20); CARBON DIOXIDE 25 mmol/L (22-30); CHLORIDE 106 mmol/L (98-107); GLUCOSE 97 mg/dL (75-110); POTASSIUM 4.3 mmol/L (3.6-5.0); SODIUM 143.3 mmol/L (137-145)
[2017-11-05] MEDS: IBUPROFEN 800 MG in NORMAL SALINE 250 ML IV SCH ×3 (06:50→22:14)
[2017-11-05] MEDS: LANSOPRAZOLE 30 MG TAB.RAP.DR PO SCH (06:51)
[2017-11-05] MEDS ORDERED: ONDANSETRON HCL INJ/PF 4 MG/2 ML SDV IV PRN (08:30)
[2017-11-05] MEDS ORDERED: ZOLPIDEM TARTRATE 5 MG TABLET PO PRN (08:30)
[2017-11-05] MEDS ORDERED: ONDANSETRON 4 MG TAB.RAPDIS PO PRN (08:30)
[2017-11-05] MEDS: PREGABALIN 75 MG CAPSULE PO SCH ×2 (09:37→17:30)
[2017-11-05] MEDS: OXYCODONE HCL SR 10 MG TABLET PO SCH ×2 (10:10→22:16)
[2017-11-05] MEDS: SENNOSIDES/DOCUSATE 8.6-50 MG 1 EACH TABLET PO SCH ×2 (10:10→17:40)
[2017-11-05] MEDS: GEMFIBROZIL 600 MG TABLET PO SCH ×2 (10:10→17:40)
[2017-11-05] MEDS: ASPIRIN 81 MG TABLET, ENT COATED PO SCH (10:10)
[2017-11-05] MEDS: PRENATAL VITAMIN W DHA CAPSULE PO SCH (10:10)
[2017-11-05] MEDS: SUCRALFATE 1 GM TABLET PO SCH ×4 (10:11→22:15)
[2017-11-05] MEDS: FLUTICASONE PROPIONATE HFA 110 MCG/PUFF 12 GM MDI IH SCH ×2 (10:12→22:15)
[2017-11-05] MEDS ORDERED: NORMAL SALINE 10 ML SDV (AFTER EACH USE) IV PRN (16:17)
[2017-11-05] MEDS: METHOCARBAMOL 500 MG TABLET PO PRN (17:40)
[2017-11-05] MEDS: VANCOMYCIN HCL 1,500 MG in DEXTROSE 5%-WATER 250 ML IV SCH ×2 (17:40)
--- NOTE | 2017-11-05 17:59 | RADIOLOGY REPORT (SQ) ---
EXAM DESCRIPTION: PICC INSERTION COMPLETED DATE/TIME: 11/05/2017 11:04 am REASON FOR STUDY: IV ACCESS FOR ANTIBIOTICS COMPARISON: Two-view chest 09/17/2017 FLUOROSCOPY TIME: 26 seconds Fluoroscopic images and ultrasound images saved to PACS. TECHNIQUE: Fluoroscopic and ultrasound guided PICC placement. LIMITATIONS: None. PROCEDURE: After written consent and assessment were obtained, the patient was brought into the fluo roscopy room and place supine on the table. Ultrasound evaluation of potential access sites were perf ormed. After successfully identifying a patent left basilic vein, the left arm was prepped and draped in a sterile fashion along with the ultrasound probe. The entry site was anesthetized with 1% lidoca ine. A 21 gauge 7 cm needle was advanced through the skin and into the basilic vein under live ultras ound guidance. An ultrasound image was saved to PACS confirming access site. A .018 guide wire was then inserted through the needle and into the venous system. The needle was the removed and an 11 clifton de scalpel was used to make a 1cm skin incision. A 5 fr peel-away sheath was advanced over the wire and into the venous system. A measurement was then made using the existing wire and live fluoroscopic guidance. The wire was then removed and the trimmed. The PICC was advanced through the peel-away she ath and into the venous system. The peel-away sheath was removed and the catheter was adhered to the patients arm with a stat lock. The catheter was then aspirated and flushed and a sterile bandage was placed over the access site. A fluoroscopic spot image was saved to PACS confirming the catheter tip within the superior vena cava. IMPRESSION: SUCCESSFUL PLACEMENT OF A 5 FR DUAL LUMEN 42 CM PICC IN THE LEFT BASILIC VEIN. COMMENT: Patient medication list reviewed: Yes- Quality ID# [id number]:Eligible professional attests to doc umenting in the medical record they obtained, updated, or reviewed the patient's current medications. . Quality ID 145: Final reports for procedures using fluoroscopy that document radiation exposure lamont taras, or exposure time and number of fluorographic images (if radiation exposure indices are not avail able) Quality ID #76: The patient was prepped and draped using maximum sterile barrier technique including cap, mask, sterile gown, sterile gloves, a large sterile sheet, hand hygiene, and 2% Chlorhexidine fo r cutaneous antisepsis. When ultrasound is used, sterile ultrasound techniques are followed requiring sterile gel and sterile probes. TECHNICAL DOCUMENTATION: JOB ID: [id number] [employer]- All Rights Reserved Reading location - IP/workstation name: [facility]
[2017-11-05] MEDS: BACLOFEN 20 MG TABLET PO SCH (22:14)
[2017-11-05] MEDS: NORMAL SALINE 10 ML SDV (SCHEDULED) IV SCH (22:16)
[2017-11-05] MEDS: ALLOPURINOL 300 MG TABLET PO SCH (22:17)
[2017-11-05] MEDS: MONTELUKAST SODIUM 10 MG TABLET PO SCH (22:17)
[2017-11-06] MEDS: LANSOPRAZOLE 30 MG TAB.RAP.DR PO SCH (05:22)
[2017-11-06] MEDS: IBUPROFEN 800 MG in NORMAL SALINE 250 ML IV SCH ×2 (05:22→14:34)
[2017-11-06] MEDS: VANCOMYCIN HCL 1,500 MG in DEXTROSE 5%-WATER 250 ML IV SCH ×2 (05:22→18:30)
--- NOTE | 2017-11-06 06:41 | PDOC PROGRESS REPORT ---
Subjective Progress Note for:: 11/06/17 Reason For Visit: LEFT HIP PERIPROSTHETIC INFECTION 52-year-old white male 3 weeks status post a left hip arthroplasty for avascular necrosis who developed a periprosthetic infection and is now postop day 2 status post I&D. Patient with improving functional status and minimal complaints of pain. Physical Exam Vital Signs: Temp Pulse Resp BP Pulse Ox 36.9 C 91 17 118/76 96 11/05/17 23:33 11/05/17 23:33 11/05/17 23:33 11/05/17 23:33 11/05/17 23:33 Intake & Output 11/04/17 11/05/17 11/06/17 06:59 06:59 06:59 Intake Total 2987 3510 Output Total 875 600 Balance 2112 2910 Weight 99.5 kg 101.5 kg General appearance: PRESENT: no acute distress Head exam: PRESENT: normocephalic Respiratory exam: PRESENT: unlabored Cardiovascular exam: PRESENT: RRR Pulses: PRESENT: +1 pedal pulses bilateral Vascular exam: PRESENT: normal capillary refill GI/Abdominal exam: PRESENT: soft Rectal exam: PRESENT: deferred Extremities exam: PRESENT: other - Left hip dressing changed today because of serosanguineous drainage. The wound is well approximated with luz. The erythema surrounding the incision is considerably improved from preoperative status. Induration is likewise improving. Leg lengths are equal. Distal neurovascular examination is intact. Neurological exam: PRESENT: alert, awake, oriented to person, oriented to place , oriented to time, oriented to situation. ABSENT: motor sensory deficit Psychiatric exam: PRESENT: appropriate affect, normal mood. ABSENT: homicidal ideation, suicidal ideation Skin exam: PRESENT: dry, intact, warm. ABSENT: cyanosis, rash Results Laboratory Results: 11/05/17 05:46 11/05/17 05:46 11/05/17 05:46 Sodium 143.3 Potassium 4.3 Chloride 106 Carbon Dioxide 25 Anion Gap 12 BUN 10 Creatinine 0.89 Est GFR ( Amer) > 60 Est GFR (Non-Af Amer) > 60 Glucose 97 Calcium 9.0 Impressions: PICC Line Insertion 11/05/17 00:00 IMPRESSION: SUCCESSFUL PLACEMENT OF A 5 FR DUAL LUMEN 42 CM PICC IN THE LEFT BASILIC VEIN. Status: Imported from PACS Assessment & Plan - Diagnosis (1) History of left hip replacement Is this a current diagnosis for this admission?: Yes Plan: Patient making excellent progress status post I&D. Currently being maintained empirically on vancomycin plus Rocephin. Intraoperative cultures are notable for 3+ white cells but there has been no identification of an underlying pathologic bacteria as of yet. Plan will be for continued mobilization. Antibiotic regimen can be altered depending on the culture and sensitivity when this becomes available. Patient be discharged home with home health. - Time Time Spent with patient: 15-24 minutes Anticipated discharge: Home with Homehealth Within: Other
[2017-11-06 08:08] LABS: HEMATOCRIT 30.2 % (37.9-51.0); HEMOGLOBIN 10.6 g/dL (13.5-17.0); MEAN CORPUSCULAR HEMOGLOBIN 31.5 pg (27.0-33.4); MEAN CORPUSCULAR HGB CONC 35.2 g/dL (32.0-36.0); MEAN CORPUSCULAR VOLUME 90 fl (80-97); PLATELET COUNT 200 10^3/uL (150-450); RED BLOOD COUNT 3.37 10^6/uL (4.35-5.55); RED CELL DISTRIBUTION WIDTH 15.1 % (11.5-14.0); WHITE BLOOD COUNT 5.2 10^3/uL (4.0-10.5)
[2017-11-06] MEDS: ASPIRIN 81 MG TABLET, ENT COATED PO SCH (08:35)
[2017-11-06] MEDS: SUCRALFATE 1 GM TABLET PO SCH ×4 (08:36→23:31)
[2017-11-06] MEDS: PRENATAL VITAMIN W DHA CAPSULE PO SCH (10:16)
[2017-11-06] MEDS: SENNOSIDES/DOCUSATE 8.6-50 MG 1 EACH TABLET PO SCH ×2 (10:16→18:50)
[2017-11-06] MEDS: GEMFIBROZIL 600 MG TABLET PO SCH ×2 (10:17→18:30)
[2017-11-06] MEDS: OXYCODONE HCL SR 10 MG TABLET PO SCH (10:17)
[2017-11-06] MEDS: PREGABALIN 75 MG CAPSULE PO SCH ×2 (10:18→18:50)
[2017-11-06] MEDS: NORMAL SALINE 10 ML SDV (SCHEDULED) IV SCH ×2 (10:19→23:33)
[2017-11-06] MEDS: FLUTICASONE PROPIONATE HFA 110 MCG/PUFF 12 GM MDI IH SCH ×2 (10:31→23:32)
[2017-11-06] MEDS: BACLOFEN 20 MG TABLET PO SCH (23:31)
[2017-11-06] MEDS: CEFTRIAXONE 2 GM/D5W RTU 2 GM/50 ML RTUPB IV SCH (23:33)
[2017-11-06] MEDS: MONTELUKAST SODIUM 10 MG TABLET PO SCH (23:33)
[2017-11-06] MEDS: ALLOPURINOL 300 MG TABLET PO SCH (23:34)
[2017-11-07 04:56] LABS: HEMOGLOBIN 11.1 g/dL (13.5-17.0); MEAN CORPUSCULAR HEMOGLOBIN 30.8 pg (27.0-33.4); MEAN CORPUSCULAR HGB CONC 34.6 g/dL (32.0-36.0); MEAN CORPUSCULAR VOLUME 89 fl (80-97); PLATELET COUNT 236 10^3/uL (150-450); RED CELL DISTRIBUTION WIDTH 14.7 % (11.5-14.0); WHITE BLOOD COUNT 4.9 10^3/uL (4.0-10.5)
[2017-11-07 06:18] LABS: VANCOMYCIN,TROUGH 12.8 ug/mL (5.0-20.0)
[2017-11-07] MEDS: LANSOPRAZOLE 30 MG TAB.RAP.DR PO SCH (06:38)
[2017-11-07] MEDS: VANCOMYCIN HCL 1,500 MG in DEXTROSE 5%-WATER 250 ML IV SCH ×2 (06:38→18:02)
[2017-11-07] MEDS: ASPIRIN 81 MG TABLET, ENT COATED PO SCH (07:59)
[2017-11-07] MEDS: SUCRALFATE 1 GM TABLET PO SCH ×4 (07:59→21:14)
--- NOTE | 2017-11-07 10:57 | PDOC PROGRESS REPORT ---
Subjective Progress Note for:: 11/07/17 Subjective:: Patient lying in bed comfortably. Pain currently controlled. No issues overnight. Has progressed in physical therapy. Reason For Visit: LEFT HIP PERIPROSTHETIC INFECTION Physical Exam Vital Signs: Temp Pulse Resp BP Pulse Ox 98.5 F 84 18 120/80 97 11/06/17 23:49 11/06/17 23:49 11/06/17 23:49 11/06/17 23:49 11/06/17 23:49 Intake & Output 11/06/17 11/07/17 11/08/17 06:59 06:59 06:59 Intake Total 4160 2550 Output Total 600 Balance 3560 2550 Weight 101.5 kg 101.1 kg Musculoskeletal exam: PRESENT: other - Left hip: Dressing clean/dry/intact. Intact plantar flexion/dorsiflexion. No evidence of limb length inequality. No calf tenderness. No sensory deficits. Results Laboratory Results: 11/07/17 04:35 11/05/17 05:46 11/06/17 11/07/17 06:55 04:35 WBC 5.2 4.9 RBC 3.37 L 3.60 L Hgb 10.6 L 11.1 L Hct 30.2 L 32.0 L MCV 90 89 MCH 31.5 30.8 MCHC 35.2 34.6 RDW 15.1 H 14.7 H Plt Count 200 236 Impressions: PICC Line Insertion 11/05/17 00:00 IMPRESSION: SUCCESSFUL PLACEMENT OF A 5 FR DUAL LUMEN 42 CM PICC IN THE LEFT BASILIC VEIN. Assessment & Plan - Diagnosis (1) Post op infection Qualifiers: Encounter type: initial encounter Qualified Code(s): T81.4XXA - Infection following a procedure, initial encounter Is this a current diagnosis for this admission?: Yes Plan: Patient status post irrigation debridement left periprosthetic hip fracture. Patient progressing appropriately at this point will continue IV antibiotics and mobilization with physical therapy. Once cultures are finalized will be discharged to home as per sensitivities. If remain negative would treat the patient empirically with Vanco and Rocephin which he is currently receiving.
[2017-11-07] MEDS: GEMFIBROZIL 600 MG TABLET PO SCH ×2 (11:37→18:02)
[2017-11-07] MEDS: PRENATAL VITAMIN W DHA CAPSULE PO SCH (11:37)
[2017-11-07] MEDS: FLUTICASONE PROPIONATE HFA 110 MCG/PUFF 12 GM MDI IH SCH ×2 (11:38→21:14)
[2017-11-07] MEDS: SENNOSIDES/DOCUSATE 8.6-50 MG 1 EACH TABLET PO SCH ×2 (11:38→18:03)
[2017-11-07] MEDS: NORMAL SALINE 10 ML SDV (SCHEDULED) IV SCH ×2 (11:40→21:15)
[2017-11-07] MEDS: PREGABALIN 75 MG CAPSULE PO SCH ×2 (11:40→18:03)
[2017-11-07] MEDS: BACLOFEN 20 MG TABLET PO SCH (21:14)
[2017-11-07] MEDS: ALLOPURINOL 300 MG TABLET PO SCH (21:14)
[2017-11-07] MEDS: MONTELUKAST SODIUM 10 MG TABLET PO SCH (21:14)
[2017-11-07] MEDS: CEFTRIAXONE 2 GM/D5W RTU 2 GM/50 ML RTUPB IV SCH (21:14)
[2017-11-07] MEDS: OXYCODONE HCL IR 5 MG TABLET PO PRN (21:24)
[2017-11-08] MEDS: LANSOPRAZOLE 30 MG TAB.RAP.DR PO SCH (06:05)
[2017-11-08] MEDS: VANCOMYCIN HCL 1,500 MG in DEXTROSE 5%-WATER 250 ML IV SCH ×2 (06:05→18:04)
[2017-11-08] MEDS: SUCRALFATE 1 GM TABLET PO SCH ×4 (08:09→22:26)
[2017-11-08] MEDS: ASPIRIN 81 MG TABLET, ENT COATED PO SCH (08:09)
[2017-11-08] MEDS: FLUTICASONE PROPIONATE HFA 110 MCG/PUFF 12 GM MDI IH SCH ×2 (10:09→22:26)
[2017-11-08] MEDS: GEMFIBROZIL 600 MG TABLET PO SCH ×2 (10:09→18:04)
[2017-11-08] MEDS: PRENATAL VITAMIN W DHA CAPSULE PO SCH (10:09)
[2017-11-08] MEDS: NORMAL SALINE 10 ML SDV (SCHEDULED) IV SCH ×2 (10:10→22:27)
[2017-11-08] MEDS: PREGABALIN 75 MG CAPSULE PO SCH ×2 (10:10→18:09)
[2017-11-08] MEDS: SENNOSIDES/DOCUSATE 8.6-50 MG 1 EACH TABLET PO SCH ×2 (10:10→18:08)
--- NOTE | 2017-11-08 11:17 | PDOC PROGRESS REPORT ---
Subjective Subjective:: Patient lying in bed comfortably. Pain currently controlled. No issues overnight. Has progressed in physical therapy. Continues to have serosanguineous drainage. Reason For Visit: LEFT HIP PERIPROSTHETIC INFECTION Physical Exam Vital Signs: Temp Pulse Resp BP Pulse Ox 98.4 F 77 17 119/72 95 11/08/17 07:22 11/08/17 07:22 11/08/17 07:22 11/08/17 07:22 11/08/17 07:22 Intake & Output 11/07/17 11/08/17 11/09/17 06:59 06:59 06:59 Intake Total 2550 2202 250 Balance 2550 2202 250 Weight 101.1 kg 104.1 kg Musculoskeletal exam: PRESENT: other - Left hip: Serosanguineous drainage on the proximal aspect of the wound. Mild swelling. Localized erythema along the surgical site. Patient ambulating well with a rolling walker. Intact plantar flexion/dorsiflexion. No calf tenderness Results Laboratory Results: 11/07/17 04:35 11/05/17 05:46 Impressions: PICC Line Insertion 11/05/17 00:00 IMPRESSION: SUCCESSFUL PLACEMENT OF A 5 FR DUAL LUMEN 42 CM PICC IN THE LEFT BASILIC VEIN. Assessment & Plan - Diagnosis (1) Post op infection Qualifiers: Encounter type: initial encounter Qualified Code(s): T81.4XXA - Infection following a procedure, initial encounter Is this a current diagnosis for this admission?: Yes Plan: Patient status post irrigation debridement left total hip arthroplasty. Patient progressing appropriately at this point will continue IV antibiotics and mobilization with physical therapy. Once cultures are finalized will be discharged to home as per sensitivities. If remain negative would treat the patient empirically with Vanco and Rocephin or as per infectious disease recommendation
[2017-11-08] MEDS: OXYCODONE HCL IR 5 MG TABLET PO PRN (13:43)
[2017-11-08] MEDS: METHOCARBAMOL 500 MG TABLET PO PRN (13:45)
[2017-11-08] MEDS: IBUPROFEN 800 MG TABLET PO PRN (18:45)
[2017-11-08] MEDS: CEFTRIAXONE 2 GM/D5W RTU 2 GM/50 ML RTUPB IV SCH (22:26)
[2017-11-08] MEDS: MONTELUKAST SODIUM 10 MG TABLET PO SCH (22:26)
[2017-11-08] MEDS: CETIRIZINE 10 MG TABLET PO SCH (22:26)
[2017-11-08] MEDS: ALLOPURINOL 300 MG TABLET PO SCH (22:26)
[2017-11-08] MEDS: OXYCODONE HCL SR 10 MG TABLET PO SCH (22:27)
[2017-11-08] MEDS: BACLOFEN 20 MG TABLET PO SCH (22:29)
[2017-11-09] MEDS: LANSOPRAZOLE 30 MG TAB.RAP.DR PO SCH (06:45)
[2017-11-09] MEDS: VANCOMYCIN HCL 1,500 MG in DEXTROSE 5%-WATER 250 ML IV SCH ×2 (06:45→19:27)
--- NOTE | 2017-11-09 07:58 | PDOC PROGRESS REPORT ---
Subjective Progress Note for:: 11/09/17 Subjective:: Patient lying in bed comfortably. Pain currently controlled. No issues overnight. Has progressed in physical therapy. Continues to have serosanguineous drainage. Reason For Visit: LEFT HIP PERIPROSTHETIC INFECTION Physical Exam Vital Signs: Temp Pulse Resp BP Pulse Ox 98.5 F 79 18 121/77 97 11/08/17 23:44 11/08/17 23:44 11/08/17 23:44 11/08/17 23:44 11/08/17 23:44 Intake & Output 11/08/17 11/09/17 11/10/17 06:59 06:59 06:59 Intake Total 2201 1976 Balance 2201 1976 Weight 104.1 kg 103.6 kg Musculoskeletal exam: PRESENT: other - Left hip: Dressing change today. Serosanguineous drainage along the proximal aspect of the wound erythema and swelling of notably improved. No erythema streaking proximally or distally. Minimal pain with range of motion. No calf tenderness. Results Laboratory Results: 11/07/17 04:35 11/05/17 05:46 11/04/17 14:10 Hip - Not Specified Gram Stain - Final 11/04/17 14:10 Hip - Not Specified Wound Culture - Final NO AEROBIC OR ANAEROBIC ORGANISMS RECOVERED Impressions: PICC Line Insertion 11/05/17 00:00 IMPRESSION: SUCCESSFUL PLACEMENT OF A 5 FR DUAL LUMEN 42 CM PICC IN THE LEFT BASILIC VEIN. Assessment & Plan - Diagnosis (1) Post op infection Qualifiers: Encounter type: initial encounter Qualified Code(s): T81.4XXA - Infection following a procedure, initial encounter Is this a current diagnosis for this admission?: Yes Plan: Patient status post irrigation debridement left total hip arthroplasty. Patient progressing appropriately at this point will continue IV antibiotics and mobilization with physical therapy. Cultures are now been finalized demonstrating culture negative total hip periprosthetic infection. I have placed a consult to infectious disease to determine appropriate IV antibiotics. Patient will require 6 weeks of IV antibiotics. Once recommendations have been made patient will be orthopedically stable for discharge to home.
[2017-11-09] MEDS: ASPIRIN 81 MG TABLET, ENT COATED PO SCH (08:10)
[2017-11-09] MEDS: IBUPROFEN 800 MG TABLET PO PRN (08:10)
[2017-11-09] MEDS ORDERED: CETIRIZINE 10 MG TABLET PO SCH (10:00)
[2017-11-09] MEDS: SUCRALFATE 1 GM TABLET PO SCH ×4 (10:14→21:50)
[2017-11-09] MEDS: PREGABALIN 75 MG CAPSULE PO SCH ×2 (10:14→17:17)
[2017-11-09] MEDS: PRENATAL VITAMIN W DHA CAPSULE PO SCH (10:24)
[2017-11-09] MEDS: SENNOSIDES/DOCUSATE 8.6-50 MG 1 EACH TABLET PO SCH ×2 (10:24→17:17)
[2017-11-09] MEDS: GEMFIBROZIL 600 MG TABLET PO SCH ×2 (10:24→17:20)
[2017-11-09] MEDS: OXYCODONE HCL SR 10 MG TABLET PO SCH ×2 (10:25→21:50)
[2017-11-09] MEDS: FLUTICASONE PROPIONATE HFA 110 MCG/PUFF 12 GM MDI IH SCH ×2 (10:27→21:50)
[2017-11-09] MEDS: NORMAL SALINE 10 ML SDV (SCHEDULED) IV SCH ×2 (10:28→21:33)
--- NOTE | 2017-11-09 15:39 | Progress Note ---
Provider Note Provider Note: ID Consult Note Asked to provide input regarding antibiotics for treatment of suspected culture negative periprosthetic early hip infection. Reviewed patient's chart. Patient not seen or examined. Mr. Aguilera is a 52 year old man who had L hip avascular necrosis and underwent L hip arthroplasty on 10/12/17. After discharge home, ne started to have increased swelling involving the L hip with increased pain and subjective fever x 1 day prior to admission. On presentation the patient was afebrile. His L hip incision was documented as well approximated and without drainage. There was a surrounding rim of erythema of ~6cm with increased warmth, and this area was somewhat ballotable on palpation. Labs were notable for WBC 14.4k, ESR 45, CRP 190. CT scan of the hip without contrast showed an encapsulated fluid collection in the subcutaneous soft tissues lateral to the hip 9 x 7 x 8 cm, read as potentially indicating abscess, complex seroma or chronic hematoma. Pt was taken to the OR on 11/04/17 for suspected L periprosthetic hip infection; a hematoma was evacuated, intraoperative culture was sent, liner was changed, and new femoral head placed. The single intraoperative culture has not shown any growth or organisms on Gram stain. Post-operatively, the patient has had a PICC line placed and has been receiving IV vancomycin and Rocephin. With the above information, it is difficult for me to conclusively determine that the patient has a periprosthetic early L hip infection, but the impression at surgery was that the hip was infected. If the lab is able to hold the culture for 2 weeks, this may help increase the yield of slower growing organisms. Otherwise, with no microbiologic growth, empiric therapy would have to be aimed at the most common causes of prosthetic joint infection (most commonly Coag Neg Staph, Staph aureus, to a lesser extent aerobic GNRs). From this standpoint treatment with 6 weeks of IV vancomycin (dosed with the assistance of a clinical pharmacist to achieve goal trough levels 15-20) plus either Cipro 750 mg BID PO or IV Rocephin 2 g IV q24h for empiric GNR activity is reasonable. Stevenson Fuller, [facility] Infectious Diseases pager [phone]
[2017-11-09] MEDS: METHOCARBAMOL 500 MG TABLET PO PRN (16:22)
--- NOTE | 2017-11-09 18:02 | Progress Note ---
Provider Note Provider Note: I reviewed infectious disease note recommending vancomycin 6 weeks with additional Cipro p.o. twice daily thus we will set the patient up for home vancomycin prescription for Cipro has been placed in the chart. Patient will be stable for discharge once home antibiotics set up.
[2017-11-09] MEDS: BACLOFEN 20 MG TABLET PO SCH (21:50)
[2017-11-09] MEDS: ALLOPURINOL 300 MG TABLET PO SCH (21:51)
[2017-11-09] MEDS: MONTELUKAST SODIUM 10 MG TABLET PO SCH (21:51)
[2017-11-09] MEDS: CETIRIZINE 10 MG TABLET PO SCH (21:52)
[2017-11-09] MEDS ORDERED: CEFTRIAXONE SODIUM 2,000 MG in NORMAL SALINE 100 ML IV SCH (22:00)
[2017-11-10] MEDS: VANCOMYCIN HCL 1,500 MG in DEXTROSE 5%-WATER 250 ML IV SCH (05:26)
[2017-11-10] MEDS: LANSOPRAZOLE 30 MG TAB.RAP.DR PO SCH (05:27)
--- NOTE | 2017-11-10 07:51 | PDOC DISCHARGE SUMMARY ---
General - Admit/Disc Date/PCP Admission Date/Primary Care Provider: 11/04/17 05:11 Discharge Date: 11/10/17 - Discharge Diagnosis (1) Post op infection Is this a current diagnosis for this admission?: Yes - Additional Information Resuscitation Status: Full Code Discharge Diet: As Tolerated Discharge Activity: Balance Activity w/Rest, No Lifting Over 10 Pounds, No Lifting/Push/Pulling Prescriptions: Ciprofloxacin HCl [Cipro 750 mg Tablet] 750 mg PO BID #84 tablet Oxycodone HCl/Acetaminophen [Percocet 5-325 mg Tablet] 1 tab PO Q6 #35 tab Home Medications: Albuterol Sulfate [Proair HFA] 2 puff IH Q4HP PRN #0 03/09/12 Fluticasone Propionate [Flovent Hfa 110 Mcg Inhalation Aerosol 12 gm] 2 puff IH BID 12/01/12 Gemfibrozil [Lopid 600 mg Tablet] 600 mg PO BID 12/01/12 Montelukast Sodium [Singulair 10 mg Tablet] 10 mg PO QHS 03/14/13 Baclofen [Baclofen 20 mg Tablet] 20 mg PO QHS 09/18/16 Celecoxib [Celebrex 200 mg Capsule] 200 mg PO Q12 09/18/16 Methocarbamol [Robaxin 500 mg Tablet] 1,000 mg PO BIDP PRN 09/18/16 Allopurinol [Zyloprim 300 mg Tablet] 300 mg PO QHS 07/13/17 Pantoprazole Sodium [Protonix] 40 mg PO QAM 07/13/17 Sucralfate [Carafate 1 gm Tablet] 1 gm PO QIDP PRN 07/13/17 Tapentadol Hydrochloride [Nucynta] 100 mg PO Q6HP PRN 09/17/17 Glucosamine/D3/Boswellia Lizbeth [Osteo Bi-Flex Tablet] 2 tab PO DAILY 10/08/17 Oxycodone HCl [Oxy-Ir 5 mg Tablet] 5 mg PO Q6HP PRN tablet 10/13/17 Aspirin [Ecotrin 81 mg EC Tablet] 81 mg PO QAM 11/04/17 Multivitamin [Multivitamins] 1 each PO DAILY 11/04/17 [place]-3 Fatty Acids/Fish Oil [Fish Oil 300 mg Softgel] 2 each PO DAILY 11/04/17 Ciprofloxacin HCl [Cipro 750 mg Tablet] 750 mg PO BID #84 tablet 11/09/17 Oxycodone HCl/Acetaminophen [Percocet 5-325 mg Tablet] 1 tab PO Q6 #35 tab 11/09 History of Present Illness History of Present Illness: KEI REAL is a 52 year old male who underwent left total hip arthroplasty . Patient did well initially however on 11/03/17 patient developed increasing redness swelling and pain in his left hip. Subsequently presented to the emergency room where he was diagnosed with a periprosthetic infection. Patient was admitted to the orthopedic service. Hospital Course Hospital Course: On 11/04/17 patient underwent irrigation debridement with polyethylene liner and head exchange by Dr. Lozano. Patient did well intraoperatively and postoperatively. Cultures were sent to microbiology. Patient was started on vancomycin and Rocephin prophylactically. Throughout the patient's hospital course he continued to have drainage however I slowly continue to improve over time. Microbiology were finalized as culture negative. At that point infectious disease was consulted per the recommendations patient should receive vancomycin IV and Cipro p.o. given the odds it was likely coagulase-negative staph. Patient states his pain continue to improve. Underwent physical therapy with good results. Denies fever chills or sweats. Physical Exam Vital Signs: Temp Pulse Resp BP Pulse Ox 98.5 F 83 18 112/78 94 11/09/17 23:12 11/09/17 23:12 11/09/17 23:12 11/09/17 23:12 11/09/17 23:12 Intake & Output 11/09/17 11/10/17 11/11/17 06:59 06:59 06:59 Intake Total 19763 Balance 1976 2716 Weight 103.6 kg 102.1 kg General appearance: PRESENT: no acute distress, well-developed, well-nourished Head exam: PRESENT: atraumatic, normocephalic Eye exam: PRESENT: conjunctiva pink, EOMI, PERRLA. ABSENT: scleral icterus Ear exam: PRESENT: normal external ear exam Mouth exam: PRESENT: moist, tongue midline Neck exam: PRESENT: full ROM. ABSENT: carotid bruit, JVD, lymphadenopathy, thyromegaly Cardiovascular exam: PRESENT: RRR. ABSENT: diastolic murmur, rubs, systolic murmur Pulses: PRESENT: normal dorsalis pedis pul, +2 pedal pulses bilateral Vascular exam: PRESENT: normal capillary refill GI/Abdominal exam: PRESENT: normal bowel sounds, soft. ABSENT: distended, guarding, mass, organolmegaly, rebound, tenderness Rectal exam: PRESENT: deferred Musculoskeletal exam: PRESENT: other - Left hip: Dressing has small amount of serosanguineous drainage on the proximal portion significantly improved compared to previous examination. Mild erythema along the incision site. Mild thigh swelling which is improved. No calf tenderness. Intact plantar flexion/ dorsiflexion. No limb length inequality. Neurological exam: PRESENT: alert, awake, oriented to person, oriented to place , oriented to time, oriented to situation, CN II-XII grossly intact. ABSENT: motor sensory deficit Psychiatric exam: PRESENT: appropriate affect, normal mood. ABSENT: homicidal ideation, suicidal ideation Skin exam: PRESENT: dry, intact, warm. ABSENT: cyanosis, rash Results Laboratory Results: 11/07/17 04:35 11/05/17 05:46 Impressions: PICC Line Insertion 11/05/17 00:00 IMPRESSION: SUCCESSFUL PLACEMENT OF A 5 FR DUAL LUMEN 42 CM PICC IN THE LEFT BASILIC VEIN. Qualifiers - * PATIENT BEING DISCHARGED WITH ANY OF THE FOLLOWING DIAGNOSIS: No Plan Discharge Plan: Patient progressed appropriate throughout hospital course. Cultures remained and are finalized as negative and thus as per infectious disease recommendation patient will be sent home on IV vancomycin and p.o. Cipro. We will continue to follow labs along with peaks and troughs as per pharmacy protocol. Patient will continue home physical therapy as per total hip precautions. Patient is to call with any questions or concerns including increased redness, swelling, pain or temperature greater than 101.5. Patient was read above instructions understood above instructions and is orthopedically stable for discharge to home on 11/10/17
[2017-11-10] MEDS: ASPIRIN 81 MG TABLET, ENT COATED PO SCH (08:48)
[2017-11-10] MEDS: SUCRALFATE 1 GM TABLET PO SCH ×2 (08:49→12:20)
[2017-11-10] MEDS: FLUTICASONE PROPIONATE HFA 110 MCG/PUFF 12 GM MDI IH SCH (10:42)
[2017-11-10] MEDS: NORMAL SALINE 10 ML SDV (SCHEDULED) IV SCH (10:43)
[2017-11-10] MEDS: OXYCODONE HCL SR 10 MG TABLET PO SCH (10:44)
[2017-11-10] MEDS: GEMFIBROZIL 600 MG TABLET PO SCH (10:45)
[2017-11-10] MEDS: PRENATAL VITAMIN W DHA CAPSULE PO SCH (10:45)
[2017-11-10] MEDS: PREGABALIN 75 MG CAPSULE PO SCH (10:46)
[2017-11-10] MEDS: SENNOSIDES/DOCUSATE 8.6-50 MG 1 EACH TABLET PO SCH (10:46)
[2017-11-10 13:31] VITALS: BP 115/74
== END 2017-11-10 13:45 | disposition home health service (06) | DRG 467 ==
LOC: ER 00:17 → EH 05:11 → 4S 16:15
PROVIDERS: ADMIT Orthopaedic Surgery; ATTEND Orthopaedic Surgery
PROC: 0SUE09Z Supplement Left Hip Joint, Acetabular Surface with Liner, Open Approach (ICD-10-PCS; 2017-11-04)
PROC: 0SRS01Z Replacement of Left Hip Joint, Femoral Surface with Metal Synthetic Substitute, Open Approach (ICD-10-PCS; 2017-11-04)
PROC: 0SPS0JZ Removal of Synthetic Substitute from Left Hip Joint, Femoral Surface, Open Approach (ICD-10-PCS; 2017-11-04)
PROC: 0SPB09Z Removal of Liner from Left Hip Joint, Open Approach (ICD-10-PCS; principal; 2017-11-04 12:30)
PROC: 02HV33Z Insertion of Infusion Device into Superior Vena Cava, Percutaneous Approach (ICD-10-PCS; 2017-11-05)
PROC: B518ZZA Fluoroscopy of Superior Vena Cava, Guidance (ICD-10-PCS; 2017-11-05)
PROC: B548ZZA Ultrasonography of Superior Vena Cava, Guidance (ICD-10-PCS; 2017-11-05)
DX: T84.52XA Infection and inflammatory reaction due to internal left hip prosthesis, initial encounter (principal); M96.841 Postprocedural hematoma of a musculoskeletal structure following other procedure; Y83.1 Surgical operation with implant of artificial internal device as the cause of abnormal reaction of the patient, or of later complication, without mention of misadventure at the time of the procedure; Z79.82 Long term (current) use of aspirin; Z90.49 Acquired absence of other specified parts of digestive tract; Z96.642 Presence of left artificial hip joint
CPT/HCPCS: 00400; 36415; 36569; 72192; 80048; 80053; 80202; 82803; 82962; 83605; 85025; 85027; 85610; 85652; 86140; 87040; 87070; 87075; 87205; 93005; 93010; 94799; 96365; 96368; 99291; C1776; C9290; J0131; J0696; J1642; J1741; J2250; J2270; J2543; J2704; J3010; J3370; J3490; J7030; J7050; J7060; J7120

== ENCOUNTER → 2017-11-27 | Day surgery (SDC) | payer OTHER ==
--- NOTE | 2017-11-27 14:43 | RADIOLOGY REPORT (SQ) ---
EXAM DESCRIPTION: PICC LINE REPLACEMENT; FLUORO/CV PLACEMENT COMPLETED DATE/TIME: 11/27/2017 2:34 pm REASON FOR STUDY: PAIN IN LEFT ARM, PICC OCCLUDED; PICC REPLACMENT, OCCLUDED, PAIN IN LEFT ARM COMPARISON: 11/05/2017 FLUOROSCOPY TIME: Fluoro time 10 seconds. 1 digital radiographic image saved to pac's. TECHNIQUE: Fluoroscopic guided PICC replacement. LIMITATIONS: None. PROCEDURE: After written consent and assessment were obtained, the patient was brought into the fluo roscopy room and place supine on the table. The left arm an existing PICC was prepped and draped in a sterile fashion. The entry site was anesthetized with 1% lidocaine. A .018 guide wire was then in serted through the existing PICC and into the venous system. The old catheter was then removed and a new catheter measuring 44 cm was advanced over the wire and into the venous system. The wire was the n removed and the catheter was adhered to the patients arm with a stat lock. The catheter was then as pirated and flushed and a sterile bandage was placed over the access site. A fluoroscopic spot image was saved to PACS confirming the catheter tip within the superior vena cava. IMPRESSION: SUCCESSFUL OVER THE WIRE REPLACEMENT OF AN OLD PICC FOR A NEW ONE THAT IS 5 FR dual LUME N 44 CM PICC IN THE left ARM. COMMENT: Patient medication list reviewed: Yes- Quality ID# 130:Eligible professional attests to doc umenting in the medical record they obtained, updated, or reviewed the patient's current medications. . Quality ID 145: Final reports for procedures using fluoroscopy that document radiation exposure lamont taras, or exposure time and number of fluorographic images (if radiation exposure indices are not avail able) Quality ID #76: The patient was prepped and draped using maximum sterile barrier technique including cap, mask, sterile gown, sterile gloves, a large sterile sheet, hand hygiene, and 2% Chlorhexidine fo r cutaneous antisepsis. When ultrasound is used, sterile ultrasound techniques are followed requiring sterile gel and sterile probes. TECHNICAL DOCUMENTATION: JOB ID: [id number] [employer]- All Rights Reserved Reading location - IP/workstation name: [facility]
== END ==
LOC: RAD 13:16 → EDSTATUS 13:30
PROVIDERS: ATTEND Orthopaedic Surgery
DX: M79.602 Pain in left arm (principal)
CPT/HCPCS: 36584; 77001; C1769; J1642